=== PATIENT | female | born 1960 | race Caucasian/White ===

== ENCOUNTER 2018-06-06 00:20 | Inpatient (IN) ==
[2018-06-06] MEDS ORDERED: OXYCODONE Oral CONC 10 MG/0.5 ML ORAL.SYG SL PRN ×2 (04:34→08:44)
[2018-06-06] MEDS: D5% in 0.45% NACL w KCl 20 MEQ/1,000 ML MLS IVC SCH ×2 (05:08→15:00)
[2018-06-06] MEDS: *HR* Heparin 5,000 UNIT/ML VIAL SQ SCH ×3 (05:08→22:48)
[2018-06-06] MEDS: Nicotine 21 MG PATCH.TD24 TD SCH (05:08)
[2018-06-06] MEDS: Piperacillin/Tazobactam 3.375 GM in 0.9 % Sodium Chloride Mini Bag 100 ML IVPB SCH ×2 (07:53→16:48)
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
[2018-06-06] MEDS ORDERED: Ondansetron 4 MG/2 ML VIAL IVP PRN (08:33)
[2018-06-06] MEDS ORDERED: *HR* Promethazine 25 MG/ML VIAL IVP PRN (08:33)
[2018-06-06] MEDS ORDERED: 0.9 % Sodium Chloride 1,000 ML IVC SCH (08:45)
[2018-06-06] MEDS ORDERED: Acetaminophen IV 1,000 MG/100 ML INFUS..BTL IVPB ONE (08:49)
[2018-06-06] MEDS: Pantoprazole 40 MG VIAL IVP SCH (10:11)
[2018-06-06 10:30] LABS: Basophils % 0.1 %; Hemoglobin 15.2 g/dL (11.5-15.4); Immature Granulocytes % 0.3 % (0-4); Lymphocytes # 0.7 K/mcL (0.6-4.6); Lymphocytes % 5.6 %; Mean Corpuscular HGB Conc 36.2 g/dL (31.6-35.5); Mean Corpuscular Hemoglobin 33.3 pg (28.0-33.3); Mean Corpuscular Volume 91.9 fL (83.0-100.0); Mean Platelet Volume 10.1 fL (9.4-12.4); Monocytes # 0.7 K/mcL (0.0-1.3); Platelet Count 216 K/mcL (140-400); Red Blood Count 4.57 M/mcL (3.82-4.97); Red Cell Distribution Width 12.6 % (11.5-14.5)
[2018-06-06 10:31] LABS: Neutrophils # 11.6 K/mcL (1.6-8.9)
[2018-06-06 10:59] LABS: Platelet Estimate Normal (Normal)
[2018-06-06] MEDS: Ketorolac 15 MG/ML VIAL IVP SCH ×2 (11:09→18:05)
[2018-06-06] MEDS: Ipratropium/Albuterol Neb 3 ML IH SCH ×2 (11:14→11:17)
[2018-06-06 11:37] LABS: BUN/Creatinine Ratio 20 (6-26); Blood Urea Nitrogen 12 mg/dL (6-20); Carbon Dioxide 25 mEq/L (23-29); Chloride 98 mEq/L (98-107); Glucose 114 mg/dL (70-105); Osmolality,Calculated 269 (280-300); Potassium 4.1 mEq/L (3.5-5.1); Sodium 129 mEq/L (136-145); eGFR For Non-African Americans > 60 (> 60)
[2018-06-07] MEDS: Ketorolac 15 MG/ML VIAL IVP SCH ×4 (01:13→18:27)
[2018-06-07] MEDS: Piperacillin/Tazobactam 3.375 GM in 0.9 % Sodium Chloride Mini Bag 100 ML IVPB SCH ×3 (01:13→18:25)
[2018-06-07 04:34] LABS: Basophils % 0.3 %; Eosinophils % 0.4 %; Hematocrit 39.2 % (35.3-44.9); Hemoglobin 13.8 g/dL (11.5-15.4); Immature Granulocytes % 0.4 % (0-4); Lymphocytes # 0.9 K/mcL (0.6-4.6); Lymphocytes % 9.5 %; Mean Corpuscular HGB Conc 35.2 g/dL (31.6-35.5); Mean Corpuscular Hemoglobin 33.1 pg (28.0-33.3); Mean Platelet Volume 10.2 fL (9.4-12.4); Monocytes # 0.5 K/mcL (0.0-1.3); Neutrophils # 7.9 K/mcL (1.6-8.9); Platelet Count 164 K/mcL (140-400); Red Blood Count 4.17 M/mcL (3.82-4.97); Red Cell Distribution Width 12.8 % (11.5-14.5); Segmented Neutrophils % 84.4 %
[2018-06-07 04:56] LABS: BUN/Creatinine Ratio 23 (6-26); Blood Urea Nitrogen 14 mg/dL (6-20); Calcium 8.8 mg/dL (8.6-10.3); Carbon Dioxide 27 mEq/L (23-29); Chloride 99 mEq/L (98-107); Glucose 101 mg/dL (70-105); Magnesium 1.6 mg/dL (1.6-2.6); Osmolality,Calculated 271 (280-300); Phosphorous 2.2 mg/dL (2.7-4.5); Potassium 3.7 mEq/L (3.5-5.1); Sodium 130 mEq/L (136-145); eGFR For Non-African Americans > 60 (> 60)
[2018-06-07] MEDS: *HR* Heparin 5,000 UNIT/ML VIAL SQ SCH ×3 (05:14→21:01)
[2018-06-07 05:34] LABS: Platelet Estimate Normal (Normal)
--- NOTE | 2018-06-07 07:58 | General Surgery Progress Note ---
Date of Encounter: 06/07/18 Time of Encounter: 07:55 - Assessment and Plan (1) Acute perforated appendicitis Current Visit: Yes Status: Inactive 58F with perforated appendicitis; normal WBC; having flatus; sips of clears, will likely advance for dinner to full tray of clears replete lytes (hyponatremia, hypokalemia, hypophosphatemia, hypomagnesemia) activity as tolerated cont IV antibiotics; plan for interval appendectomy (2) Smoking history Current Visit: Yes Status: Chronic no smoking; can give nicotine patch if needed (3) Electrolyte imbalance Current Visit: Yes Status: Acute hyponatremia: sodium phosph hypophosphatemia: sodium phosph hypomagnesemia: mag sulfate hypokalemia: potassium chloride repeat labs in AM (4) Tachycardia Current Visit: Yes Status: Acute reactive to perforated appendix as a response to sepsis; expect it to continue to improve Subjective Patient reports: no new complaints, feels better, still having pain, flatus, afebrile Objective Vital Signs - Last 8 Hours Temp Pulse Resp BP Pulse Ox 06/07/18 07:41 99.1 F 110 17 107/73 92 06/07/18 04:16 99.3 F 108 14 98/68 93 Intake and Output 06/06/18 06/06/18 06/07/18 15:59 23:59 07:59 Intake Total 1200 / 1200 100 / 100 0 / 0 Output Total 1000 / 1000 300 / 300 0 / 0 Balance 200 / 200 -200 / -200 0 / 0 Intake: IV Fluids 1200 / 1200 100 / 100 KCl 20mEq IN D5%-0.45 NACL 20 1000 / 1000 meq In 1,000 ml @ 100 mls/hr IVC .Q10H [facility] Rx#:[id number] Ofirmev 1,000 mg/100 ml 1,000 100 / 100 mg In 100 ml @ 400 mls/hr IVPB ONCE ONE Rx#:[id number] Zosyn 3.375 GM In 0.9 % Sodium 100 / 100 100 / 100 Chloride (Mini-Bag +) 100 ML @ 25 mls/hr IVPB Q8HR [facility]MEN Rx#: [id number] Oral 0 / 0 0 / 0 Output: Urine 1000 / 1000 300 / 300 0 / 0 Other: Meal NPO LUNCH NPO DINNER # Voids 1 1 # Bowel Movements 0 Blood Glucose* 137 140 100 - General physical appearance no distress - Respiratory normal expansion, normal respiratory effort - Cardiovascular Cardiovascular exam: Present: RRR - Abdomen Abdomen: Present: soft, tender Abdominal Tenderness: RLQ - Integumentary no rash - Neurologic CN 2-12 grossly intact - Labs 06/07/18 04:14 06/07/18 04:14 Diabetes panel 06/06/18 06/07/18 Range/Units 11:09 04:14 Sodium 129 L 130 L (136-145) mEq/L Potassium 4.1 3.7 (3.5-5.1) mEq/L Chloride 98 99 (98-107) mEq/L Carbon Dioxide 25 27 (23-29) mEq/L BUN 12 14 (6-20) mg/dL Creatinine 0.61 0.61 (0.60-1.20) mg/dL Glucose 114 H 101 (70-105) mg/dL Calcium 9.0 8.8 (8.6-10.3) mg/dL Calcium panel 06/06/18 06/07/18 Range/Units 11:09 04:14 Calcium 9.0 8.8 (8.6-10.3) mg/dL Phosphorus 2.2 L (2.7-4.5) mg/dL Pituitary panel 06/06/18 06/07/18 Range/Units 11:09 04:14 Sodium 129 L 130 L (136-145) mEq/L Potassium 4.1 3.7 (3.5-5.1) mEq/L Chloride 98 99 (98-107) mEq/L Carbon Dioxide 25 27 (23-29) mEq/L BUN 12 14 (6-20) mg/dL Creatinine 0.61 0.61 (0.60-1.20) mg/dL Glucose 114 H 101 (70-105) mg/dL Calcium 9.0 8.8 (8.6-10.3) mg/dL Adrenal panel 06/06/18 06/07/18 Range/Units 11:09 04:14 Sodium 129 L 130 L (136-145) mEq/L Potassium 4.1 3.7 (3.5-5.1) mEq/L Chloride 98 99 (98-107) mEq/L Carbon Dioxide 25 27 (23-29) mEq/L BUN 12 14 (6-20) mg/dL Creatinine 0.61 0.61 (0.60-1.20) mg/dL Glucose 114 H 101 (70-105) mg/dL Calcium 9.0 8.8 (8.6-10.3) mg/dL Consult Discharge Plan - Plan Referrals: Stella Heaton MD [Primary Care Provider] -
[2018-06-07] MEDS: Nicotine 21 MG PATCH.TD24 TD SCH (09:10)
[2018-06-07] MEDS: Pantoprazole 40 MG VIAL IVP SCH (09:11)
[2018-06-07] MEDS: D5% in 0.9% NACL w KCl 20 MEQ/1,000 ML MLS IVC SCH (09:16)
[2018-06-07] MEDS: Ipratropium/Albuterol Neb 3 ML IH PRN ×2 (09:55→19:54)
[2018-06-07] MEDS: OXYCODONE Oral CONC 10 MG/0.5 ML ORAL.SYG SL PRN ×2 (10:19→19:02)
--- NOTE | 2018-06-07 20:21 | Event Note ---
Date of Encounter: 06/07/18 Time of Encounter: 20:19 Was called regarding the patient's elevated heart rate and low blood pressure and increasing pain. She just received Toradol but had not received her when necessary narcotic pain medication. 45 minutes 1 hour after receiving the second medication her pain did improve. Heart rate has been in the 120s and is now 114. Overall today her heart rate has been in the low [address] scan without contrast shows evolving phlegmon the right lower quadrant/ appendicitis with some fluid and third spacing. There is some pelvic fluid but no free air and also bilateral pleural effusions are noted. Continue with IV antibiotics at this time.
[2018-06-07] MEDS: D5% in 0.45% NACL w KCl 20 MEQ/1,000 ML MLS IVC SCH (20:28)
[2018-06-08] MEDS: Piperacillin/Tazobactam 3.375 GM in 0.9 % Sodium Chloride Mini Bag 100 ML IVPB SCH ×4 (00:49→20:07)
[2018-06-08] MEDS: Ketorolac 15 MG/ML VIAL IVP SCH ×3 (00:50→11:46)
[2018-06-08] MEDS: D5% in 0.9% NACL w KCl 20 MEQ/1,000 ML MLS IVC SCH ×4 (01:14→14:00)
[2018-06-08 02:16] LABS: BUN/Creatinine Ratio 29 (6-26); Blood Urea Nitrogen 14 mg/dL (6-20); Calcium 8.3 mg/dL (8.6-10.3); Carbon Dioxide 23 mEq/L (23-29); Chloride 101 mEq/L (98-107); Glucose 111 mg/dL (70-105); Magnesium 1.7 mg/dL (1.6-2.6); Osmolality,Calculated 269 (280-300); Phosphorous 2.7 mg/dL (2.7-4.5); Potassium 3.9 mEq/L (3.5-5.1); Sodium 129 mEq/L (136-145); eGFR For Non-African Americans > 60 (> 60)
[2018-06-08] MEDS: *HR* Heparin 5,000 UNIT/ML VIAL SQ SCH ×3 (06:24→21:21)
[2018-06-08] MEDS: Ipratropium/Albuterol Neb 3 ML IH PRN (06:42)
[2018-06-08 08:00] LABS: Basophils % 0.2 %; Eosinophils # 0.1 K/mcL (0.0-0.6); Eosinophils % 1.3 %; Hematocrit 34.4 % (35.3-44.9); Immature Granulocytes % 0.3 % (0-4); Lymphocytes # 0.8 K/mcL (0.6-4.6); Lymphocytes % 9.3 %; Mean Corpuscular HGB Conc 33.7 g/dL (31.6-35.5); Mean Platelet Volume 10.1 fL (9.4-12.4); Monocytes # 0.5 K/mcL (0.0-1.3); Monocytes % 5.8 %; Neutrophils # 7.5 K/mcL (1.6-8.9); Platelet Count 200 K/mcL (140-400); Red Blood Count 3.62 M/mcL (3.82-4.97); Segmented Neutrophils % 83.1 %
[2018-06-08 08:11] LABS: Hemoglobin 11.6 g/dL (11.5-15.4)
[2018-06-08] MEDS: OXYCODONE Oral CONC 10 MG/0.5 ML ORAL.SYG SL PRN (09:31)
[2018-06-08] MEDS: Pantoprazole 40 MG VIAL IVP SCH (10:03)
[2018-06-08] MEDS: Nicotine 21 MG PATCH.TD24 TD SCH (10:03)
--- NOTE | 2018-06-08 11:28 | Event Note ---
Date of Encounter: 06/08/18 Time of Encounter: 11:26 CXR with opacities concerning for PNA in the mid lobe. Zosyn coverage already on board. Will add scheduled dueb, mucomyst (given smoking history), and accu- pap. NAD. No contraindications to proceed with surgical intervention today.
[2018-06-08] MEDS: Ipratropium/Albuterol Neb 3 ML IH SCH ×4 (11:35→23:28)
[2018-06-08] MEDS: Acetylcysteine 10% 2 ML INHSOL IH SCH ×4 (11:35→23:28)
--- NOTE | 2018-06-08 13:39 | General Surgery Progress Note ---
Date of Encounter: 06/08/18 Time of Encounter: 13:37 - Assessment and Plan (1) Acute perforated appendicitis Current Visit: Yes Status: Inactive 58F with perforated appendicitis; normal WBC; febrile; continued pain; npo IVF abx plan for OR today (2) Smoking history Current Visit: Yes Status: Chronic no smoking; can give nicotine patch if needed (3) Electrolyte imbalance Current Visit: Yes Status: Acute hyponatremia: sodium phosph hypophosphatemia: sodium phosph hypomagnesemia: mag sulfate hypokalemia: potassium chloride repeat labs in AM (4) Tachycardia Current Visit: Yes Status: Acute reactive to perforated appendix as a response to sepsis; expect it to continue to improve after srugery Subjective Patient reports: no new complaints, other (febrile; continued pain, tachycardic) Objective Vital Signs - Last 8 Hours Temp Pulse Resp BP Pulse Ox 06/08/18 12:00 99.6 F 108 20 102/69 93 06/08/18 11:35 20 89 06/08/18 10:00 99.5 F 116 21 131/82 95 06/08/18 07:47 98.7 F 103 18 101/68 92 06/08/18 06:42 16 92 Intake and Output 06/07/18 06/08/18 06/08/18 23:59 07:59 15:59 Intake Total 1300 / 1300 834 / 834 357 / 357 Output Total 200 / 200 Balance 1300 / 1300 634 / 634 357 / 357 Intake: IV Fluids 1200 / 1200 734 / 734 357 / 357 KCl 20mEq in D5-0.9 NaCl 20 meq 1000 / 1000 634 / 634 357 / 357 In 1,000 ml @ 100 mls/hr IVC . Q10H [facility] Rx#:[id number] Zosyn 3.375 GM In 0.9 % Sodium 100 / 100 100 / 100 Chloride (Mini-Bag +) 100 ML @ 25 mls/hr IVPB Q8HR [facility] Rx#: [id number] Oral 100 / 100 100 / 100 Output: Urine 200 / 200 Other: Meal npo Percent of Meal Consumed 0% # Voids 1 1 Weight 73.1 kg Patient Weight 06/08/18 23:59 Weight 73.1 kg - General physical appearance no distress - Respiratory normal expansion, normal respiratory effort - Cardiovascular Cardiovascular exam: Present: RRR, tachycardia - Abdomen Abdomen: Present: soft, tender Abdominal Tenderness: RLQ - Neurologic CN 2-12 grossly intact - Musculoskeletal normal posture - Psychiatric oriented to time, oriented to person, oriented to place - Labs 06/08/18 07:34 06/08/18 01:28 Diabetes panel 06/08/18 Range/Units 01:28 Sodium 129 L (136-145) mEq/L Potassium 3.9 (3.5-5.1) mEq/L Chloride 101 (98-107) mEq/L Carbon Dioxide 23 (23-29) mEq/L BUN 14 (6-20) mg/dL Creatinine 0.48 L (0.60-1.20) mg/dL Glucose 111 H (70-105) mg/dL Calcium 8.3 L (8.6-10.3) mg/dL Calcium panel 06/08/18 Range/Units 01:28 Calcium 8.3 L (8.6-10.3) mg/dL Phosphorus 2.7 (2.7-4.5) mg/dL Pituitary panel 06/08/18 Range/Units 01:28 Sodium 129 L (136-145) mEq/L Potassium 3.9 (3.5-5.1) mEq/L Chloride 101 (98-107) mEq/L Carbon Dioxide 23 (23-29) mEq/L BUN 14 (6-20) mg/dL Creatinine 0.48 L (0.60-1.20) mg/dL Glucose 111 H (70-105) mg/dL Calcium 8.3 L (8.6-10.3) mg/dL Adrenal panel 06/08/18 Range/Units 01:28 Sodium 129 L (136-145) mEq/L Potassium 3.9 (3.5-5.1) mEq/L Chloride 101 (98-107) mEq/L Carbon Dioxide 23 (23-29) mEq/L BUN 14 (6-20) mg/dL Creatinine 0.48 L (0.60-1.20) mg/dL Glucose 111 H (70-105) mg/dL Calcium 8.3 L (8.6-10.3) mg/dL Consult Discharge Plan - Plan Referrals: Stella Heaton MD [Primary Care Provider] -
[2018-06-08] MEDS ORDERED: Albuterol 2.5 MG/3 ML NEBULIZER IH ONE ×2 (13:55→17:48)
--- NOTE | 2018-06-08 13:59 | Anesthesia Evaluation PreOp ---
Date of Encounter: 06/08/18 Time of Encounter: 14:00 - Past History Planned Operation: Lap Appendectomy Cardiac History: HTN Pulmonary History: Smoker (40 pack year), COPD [employer] History: Denies Any Significant HX Other Medical History: Hepatic (Hep C) Anesthesia History: No Prior Anesthetic Complications Alcohol Use: occasionally Drug use: none Medications and Allergies Cholecalciferol (D-3) [Vitamin D] 1,000 unit PO DAILY 01/30/18 [History] Citalopram Hydrobromide [Celexa] 40 mg PO DAILY 01/30/18 [History] Multivitamin [One Daily Multivitamin] 1 tab PO DAILY 01/30/18 [History] Cyclobenzaprine [Flexeril] 10 mg PO TID 7 Days #21 tablet 01/31/18 [Rx] Tramadol HCl [Ultram] 50 mg PO QID PRN 06/06/18 [History] 3 Allergy/AdvReac Type Severity Reaction Status Date / Time No Known Allergies Allergy Verified 01/30/18 07:10 - Meds/Allergy Pre-op Review Medications Reviewed: Yes Allergies Reviewed: Yes Beta Blockers on Current Med List: No Anesthesia Results - Labs 06/08/18 07:34 06/08/18 01:28 - Imaging EKG: report reviewed (SR) Anesthesia Exam O2 Sat Weight 73.1 kg O2 Sat by Pulse Oximetry 93 O2 Sat by Pulse Oximetry 89 O2 Sat by Pulse Oximetry 95 O2 Sat by Pulse Oximetry 92 O2 Sat by Pulse Oximetry 92 O2 Sat by Pulse Oximetry 92 O2 Sat by Pulse Oximetry 91 O2 Sat by Pulse Oximetry 92 O2 Sat by Pulse Oximetry 93 O2 Sat by Pulse Oximetry 92 O2 Sat by Pulse Oximetry 92 O2 Sat by Pulse Oximetry 92 O2 Sat by Pulse Oximetry 90 Vital Signs Temp Pulse Resp BP Pulse Ox 98.6 F 119 14 119/84 95 06/06/18 04:23 06/06/18 04:23 06/06/18 04:23 06/06/18 04:23 06/06/18 04:23 Height: 5'6 Weight: 161 lbs NPO (# of Hours): MN Pain Scale: 0 - HEENT Pupil (Motor): Pupils equal, EOMI Mallampati: II Oral Opening: Greater than 3 - [employer] LOC: Oriented [employer] Motor: Normal RUE, Normal LUE, Normal RLE, Normal LLE, Normal Face [employer] Sensory: Normal: RUE, LUE, RLE, LLE, Face - Cardiac Rhythm: Regular Murmur: None JVD: No Carotid Bruit: No - Pulmonary Breath Sounds: bilateral Clear Respiratory Effort: Symmetrical Anesthesia Assess/Plan ASA Score: 3 (HTN COPD Tobacco HepC) Modified Dipak Scale for Level of Consciousness: Cooperative, oriented, and tranquil Anesthetic Plan: General Monitoring Plan: Standard Monitors Recovery Plan: PACU (Discussed GA, agrees to proceed)
[2018-06-08] MEDS ORDERED: *HR* FentaNYL (PF) 100 MCG/2 ML VIAL ONE (14:51)
[2018-06-08] MEDS ORDERED: *HR* Propofol 200 MG/20 ML VIAL IVP ONE (14:51)
[2018-06-08] MEDS ORDERED: Lidocaine -MPF 2% 2 ML VIAL ONE (14:51)
[2018-06-08] MEDS ORDERED: Ondansetron 4 MG/2 ML VIAL ONE (14:51)
[2018-06-08] MEDS ORDERED: Dexamethasone 4 MG/ML VIAL ONE (14:51)
[2018-06-08] MEDS ORDERED: *HR* Rocuronium Bromide 50 MG/5 ML VIAL ONE (14:51)
[2018-06-08] MEDS ORDERED: Lidocaine -MPF 4% 5 ML AMPUL ONE (14:51)
[2018-06-08] MEDS ORDERED: *HR* Succinylcholine 200 MG/10 ML VIAL IVP ONE (14:57)
[2018-06-08] MEDS ORDERED: *HR* HYDROmorphone (PF) 1 MG/ML SYRINGE IVP PRN (15:11)
[2018-06-08] MEDS ORDERED: Dexamethasone 4 MG/ML VIAL IVP ONE (15:11)
[2018-06-08] MEDS ORDERED: Ondansetron 4 MG/2 ML VIAL IVP ONE (15:11)
[2018-06-08] MEDS ORDERED: *HR* Promethazine 25 MG/ML VIAL IVP PRN ×2 (15:11→18:25)
[2018-06-08] MEDS ORDERED: *HR* Labetalol 20 MG/4 ML SYRINGE IVP PRN (15:11)
[2018-06-08] MEDS ORDERED: CefOXitin 1,000 MG VIAL ONE ×2 (15:31→16:36)
[2018-06-08] MEDS ORDERED: *HR* PHENYLEPHRINE 1,000 MCG/10 ML SYRINGE IVP ONE (15:31)
[2018-06-08] MEDS ORDERED: *HR* Morphine 10 MG/ML VIAL ONE (16:06)
[2018-06-08] MEDS ORDERED: Neostigmine Methylsulfate 3 MG/3 ML SYRINGE ONE (16:55)
[2018-06-08] MEDS ORDERED: Micafungin 100 MG in 0.9 % Sodium Chloride Mini Bag 100 ML IVPB SCH (17:30)
[2018-06-08] MEDS ORDERED: Albuterol 2.5 MG/3 ML NEBULIZER ONE (17:49)
[2018-06-08] MEDS ORDERED: Ringers Solution, Lactated 1,000 ML ONE (18:13)
[2018-06-08] MEDS ORDERED: Ondansetron 4 MG/2 ML VIAL IVP PRN (18:25)
--- NOTE | 2018-06-08 18:40 | Anesthesia Evaluation Post Op ---
Date of Encounter: 06/08/18 Time of Encounter: 18:39 - Vital Signs Vital Signs: Vital Signs/O2 Sat, Most Current Temp Pulse Resp BP Pulse Ox 98.1 F 108 21 108/80 89 06/08/18 18:18 06/08/18 18:18 06/08/18 18:18 06/08/18 18:18 06/08/18 18:18 - Lungs Lungs: Wheezes, Treatment Ordered - Airway Airway: Non-obstructed - Cardiovascular Regular Rate - Mental Status Mental Status: Asleep with brisk response to light stimulation, Baseline Status - Pain Pain Scale: 0 Pain Scale used: Numeric (1 - 10) - Nausea Vomiting Nausea Vomiting: Not Present - Hydration Hydration: Ice chips - Discharge PostOp Status: Transfer Patient to floor
[2018-06-09] MEDS: Ipratropium/Albuterol Neb 3 ML IH SCH ×5 (03:29→19:35)
[2018-06-09] MEDS: Acetylcysteine 10% 2 ML INHSOL IH SCH ×5 (03:29→19:35)
[2018-06-09] MEDS: OXYCODONE Oral CONC 10 MG/0.5 ML ORAL.SYG SL PRN ×2 (03:30→12:40)
[2018-06-09] MEDS: D5% in 0.9% NACL w KCl 20 MEQ/1,000 ML MLS IVC SCH (03:31)
[2018-06-09] MEDS: Piperacillin/Tazobactam 3.375 GM in 0.9 % Sodium Chloride Mini Bag 100 ML IVPB SCH ×3 (03:32→17:45)
[2018-06-09] MEDS: *HR* Heparin 5,000 UNIT/ML VIAL SQ SCH ×3 (04:56→20:43)
[2018-06-09] MEDS: Ketorolac 15 MG/ML VIAL IVP PRN ×2 (04:57→17:49)
[2018-06-09] MEDS ORDERED: Benzonatate 100 MG CAPSULE PO PRN ×2 (07:35→18:36)
--- NOTE | 2018-06-09 07:40 | General Surgery Progress Note ---
Addendum entered and electronically signed by Evie Pruitt 06/09/18 10:16: After consulting Nutritions we will follow recommendation to start TPN as patient will likely remain NPO into the weekend Original Note: <Evie Pruitt - Last Filed: 06/09/18 07:38> Date of Encounter: 06/09/18 Time of Encounter: 07:38 - Assessment and Plan (1) Perforated appendicitis Current Visit: Yes Status: Acute POD 1 of laproscopic appendectomy with partial removal due to rupture and abscess formation may lead to longer length of stay. WBC 11.6 - continue zosyn - NPO - continue protonix - pain and nausea medications continued prn - PT consult (2) COPD (chronic obstructive pulmonary disease) Current Visit: Yes Status: Suspected Distant diagnosis of COPD with smoking history but not no out patient treatment - duonebs and acetylcysteine q4hr - tessalon prn on cough - continues pulse ox - continue oxygen supplementation May need PFTs as out patient Qualifiers: COPD type: unspecified COPD Qualified Code(s): J44.9 - Chronic obstructive pulmonary disease, unspecified (3) DVT prophylaxis Current Visit: Yes Status: Acute heparin SQ Subjective Patient reports: still having pain, flatus, shortness of breath, afebrile Narrative: RLQ pain is improving but worse with cough. Still short of breath and requiring oxygen with history of COPD diagnosed 10 years ago and noncompliant with inhalers Objective Vital Signs - Last 8 Hours Temp Pulse Resp BP Pulse Ox 06/09/18 05:45 98.3 F 96 16 115/78 89 06/09/18 04:15 98.6 F 104 15 100/67 92 06/09/18 03:32 16 93 06/09/18 00:23 98 F 103 14 103/74 92 Intake and Output 06/08/18 06/08/18 06/09/18 15:59 23:59 07:59 Intake Total 657 / 657 300 / 300 800 / 800 Output Total 560 / 560 710 / 710 Balance 657 / 657 -260 / -260 90 / 90 Intake: IV Fluids 657 / 657 300 / 300 800 / 800 KCl 20mEq in D5-0.9 NaCl 20 meq 557 / 557 200 / 200 800 / 800 In 1,000 ml @ 100 mls/hr IVC . Q10H [facility] Rx#:[id number] Zosyn 3.375 GM In 0.9 % Sodium 100 / 100 100 / 100 Chloride (Mini-Bag +) 100 ML @ 25 mls/hr IVPB Q8H [facility] Rx#: [id number] Oral 0 / 0 Output: Urine 650 / 650 Estimated Blood Loss Wound Drainage 540 / 540 60 / 60 Left Abdomen 10 40 / 40 Right Abdomen Other: Meal npo Percent of Meal Consumed 0% # Voids 1 # Bowel Movements 0 Weight 98.3 kg Patient Weight 06/09/18 23:59 Weight 98.3 kg - General physical appearance well developed, moderate pain, obese - Eyes normal ocular movement - ENT normal pinna, normal nares, normal mucosa, no hearing loss - Respiratory normal expansion, normal respiratory effort, other wheezing: bilateral - Cardiovascular Cardiovascular exam: Present: RRR. Absent: murmurs, rubs - Abdomen Abdomen: Present: bowel sounds present, soft, distended, tender, wound. Absent : guarding, rebound Abdominal Tenderness: RLQ, diffusely Hernia: none - Incision Incision: Present: draining, serosanguinous, approximated. Absent: swollen, inflamed - Neurologic normal coordination, normal sensation - Musculoskeletal normal posture - Psychiatric oriented to time, oriented to person, oriented to place, speech is normal - Labs 06/08/18 07:34 06/08/18 01:28 Consult Discharge Plan - Plan Referrals: Stella Heaton MD [Primary Care Provider] - <Dale Small - Last Filed: 06/09/18 15:55> Date of Encounter: 06/09/18 - Assessment and Plan (1) Acute perforated appendicitis Current Visit: Yes Status: Inactive (2) Smoking history Current Visit: Yes Status: Chronic (3) Electrolyte imbalance Current Visit: Yes Status: Acute (4) Tachycardia Current Visit: Yes Status: Acute Objective Vital Signs - Last 8 Hours Temp Pulse Resp BP Pulse Ox 06/09/18 14:00 98.2 F 107 25 110/72 94 06/09/18 12:00 98.1 F 114 23 118/77 90 06/09/18 11:10 18 91 06/09/18 10:23 97.5 F L 98 22 109/79 91 06/09/18 10:14 98.0 F 97 24 101/64 88 06/09/18 08:30 92 06/09/18 07:50 18 90 Intake and Output 06/08/18 06/09/18 06/09/18 23:59 07:59 15:59 Intake Total 300 / 300 900 / 900 920 / 920 Output Total 560 / 560 710 / 710 300 / 300 Balance -260 / -260 190 / 190 620 / 620 Intake: IV Fluids 300 / 300 900 / 900 920 / 920 KCl 20mEq in D5-0.9 NaCl 20 meq 200 / 200 800 / 800 820 / 820 In 1,000 ml @ 100 mls/hr IVC . Q10H [facility] Rx#:[id number] Zosyn 3.375 GM In 0.9 % Sodium 100 / 100 100 / 100 100 / 100 Chloride (Mini-Bag +) 100 ML @ 25 mls/hr IVPB Q8H [facility] Rx#: [id number] Oral 0 / 0 Output: Urine 650 / 650 250 / 250 Estimated Blood Loss 20 / 20 Wound Drainage 540 / 540 60 / 60 50 / 50 Left Abdomen 40 / 40 10 10 Right Abdomen 20 20 40 / 40 Other: Meal npo Percent of Meal Consumed 0% # Bowel Movements 0 Weight 98.3 kg Patient Weight 06/09/18 23:59 Weight 98.3 kg - Labs 06/09/18 07:38 06/09/18 07:38 Diabetes panel 06/09/18 Range/Units 07:38 Sodium 135 L (136-145) mEq/L Potassium 4.7 (3.5-5.1) mEq/L Chloride 107 (98-107) mEq/L Carbon Dioxide 24 (23-29) mEq/L BUN 13 (6-20) mg/dL Creatinine 0.49 L (0.60-1.20) mg/dL Glucose 149 H (70-105) mg/dL Calcium 8.6 (8.6-10.3) mg/dL Calcium panel 06/09/18 Range/Units 07:38 Calcium 8.6 (8.6-10.3) mg/dL Phosphorus 3.4 (2.7-4.5) mg/dL Pituitary panel 06/09/18 Range/Units 07:38 Sodium 135 L (136-145) mEq/L Potassium 4.7 (3.5-5.1) mEq/L Chloride 107 (98-107) mEq/L Carbon Dioxide 24 (23-29) mEq/L BUN 13 (6-20) mg/dL Creatinine 0.49 L (0.60-1.20) mg/dL Glucose 149 H (70-105) mg/dL Calcium 8.6 (8.6-10.3) mg/dL Adrenal panel 06/09/18 Range/Units 07:38 Sodium 135 L (136-145) mEq/L Potassium 4.7 (3.5-5.1) mEq/L Chloride 107 (98-107) mEq/L Carbon Dioxide 24 (23-29) mEq/L BUN 13 (6-20) mg/dL Creatinine 0.49 L (0.60-1.20) mg/dL Glucose 149 H (70-105) mg/dL Calcium 8.6 (8.6-10.3) mg/dL - Attending Attestation I have personally seen and examined the patient. I have reviewed pertinent labs , imaging, progress notes, including this one. I agree with the above assessment and plan and wish to include the following... POD #1 s/p laparoscopic debridement of periappendiceal abscess 2/2 perforated appendicitis; also with GNR bactermia; improved pain, but still present; slight elevation in WBC; good UOP start TPN (will need pICC line) antimicrobial per ID recs anticipating ileus; NG tube vs diet when clinically indicated activity as tolerated cont IVF albuterol neb while awake
[2018-06-09 07:57] LABS: Basophils % 0.1 %; Hematocrit 34.5 % (35.3-44.9); Hemoglobin 11.6 g/dL (11.5-15.4); Immature Granulocytes % 0.8 % (0-4); Lymphocytes # 0.6 K/mcL (0.6-4.6); Lymphocytes % 4.9 %; Mean Corpuscular HGB Conc 33.6 g/dL (31.6-35.5); Mean Corpuscular Hemoglobin 32.4 pg (28.0-33.3); Mean Corpuscular Volume 96.4 fL (83.0-100.0); Mean Platelet Volume 9.8 fL (9.4-12.4); Monocytes # 0.6 K/mcL (0.0-1.3); Monocytes % 5.1 %; Neutrophils # 10.6 K/mcL (1.6-8.9); Platelet Count 230 K/mcL (140-400); Red Blood Count 3.58 M/mcL (3.82-4.97); Red Cell Distribution Width 13.1 % (11.5-14.5); Segmented Neutrophils % 89.1 %
[2018-06-09 08:16] LABS: BUN/Creatinine Ratio 27 (6-26); Blood Urea Nitrogen 13 mg/dL (6-20); Calcium 8.6 mg/dL (8.6-10.3); Carbon Dioxide 24 mEq/L (23-29); Chloride 107 mEq/L (98-107); Glucose 149 mg/dL (70-105); Magnesium 1.8 mg/dL (1.6-2.6); Osmolality,Calculated 283 (280-300); Phosphorous 3.4 mg/dL (2.7-4.5); Potassium 4.7 mEq/L (3.5-5.1); Sodium 135 mEq/L (136-145); eGFR For Non-African Americans > 60 (> 60)
[2018-06-09] MEDS ORDERED: Nicotine 21 MG PATCH.TD24 TD SCH (09:00)
[2018-06-09] MEDS ORDERED: Pantoprazole 40 MG VIAL IVP SCH (09:00)
[2018-06-09] MEDS ORDERED: Lidocaine -MPF 1% 5 ML AMPUL INFILT ONE (10:14)
[2018-06-09] MEDS ORDERED: 0.9 % Sodium Chloride 1,000 ML IVC SCH (11:15)
[2018-06-09] MEDS ORDERED: D10% in Water 500 ML IVC PRN ×5 (11:33→18:36)
[2018-06-09] MEDS ORDERED: D5% in Water 1,000 ML IVC PRN ×2 (12:08→18:36)
[2018-06-09] MEDS ORDERED: Dextrose Gel 15 GM/37.5 ML TUBE PO PRN ×4 (12:08→18:36)
[2018-06-09] MEDS ORDERED: *HR* Dextrose 50 % in Water (Syg) 50 ML SYRINGE IVP PRN ×2 (12:08→18:36)
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
[2018-06-09] MEDS ORDERED: Insulin LISPRO 300 UNITS/3 ML VIAL SQ SCH (16:00)
--- NOTE | 2018-06-09 16:11 | Operative Note ---
Date of procedure: 06/08/18 Pre-op diagnosis: perforated appendicitis Post-op diagnosis: same Procedure: laparoscopic debridement and abdominal washout Implants: 2 19fr vasyl drains Complications: none Anesthesia: GETA Local Anesthetics: 0.5% Sensorcaine HCL SubQ (cc) Surgeon: Dale Small Was there an certified ophthalmic assistant present: No Estimated blood loss (cc): 20 Specimen: appendix Condition: stable Disposition: PACU Procedure in Detail: The patient was brought into the operating room suite. The patient was placed in the supine position. Mechanical DVT prophylaxis was initiated. The patient underwent smooth induction of general endotracheal anesthesia. The patient was prepped and draped in the usual fashion. Preoperative antibiotics were given. A timeout was held identifying the correct patient, pathology, and procedure. Everyone was in agreement and we began a procedure. I started bycreating a supraumbilical incision and via open Kebede technique entered into the abdomen. I then used a Vicryl suture on a UR 6 needle in a [id number] fashion to reapproximate but not close the fascia. I then inserted the 10 trocar followed by the camera to visualize the intraabdominal cavity. I then created a 5 mm incision suprapubically and inserted the 5 mm trocar under direct visualization. Roughly 1 handbreadth lateral to the umbilical incision I created another 5 mm incision and inserted another 5 mm trocar under direct visualization. I immediately noticed a fairly dense wall of inflammation along the right side. There were adhesions that came down easily with the release of purulent drainage. This was suctioned to prevent widespread contamination as this abscess was walled off. I continued taking down the adhesions until I reached an especially dense portion on the right side which i figured corresponded to where the appendix perforated. I was able to identify the cecum and as I followed it to its base, I was able to see the base of the appendix. Following it as best as I could, i was able to see the body of the appendix. Taking down the inflammatory tissue and adhesions with blunt dissection, I was able to free the appendix. I went into the abdominal side wall to create a flap of tissue that could grasp instead of the appendix. This was helpful as I was able to dissect more of the appendix off the side wall. As I continued this maneuver, the appendix ripped in the grasp of my instrument. I removed the piece of specimen and sent it for pathology. It was at this time, I decided to conclude the procedure. There was no contamination with succus nor enteric contents I irrigated the abdomen with 2L of antibiotic impregnated saline. Left two 19fr vasyl drains in the abdomen in the area of the abscess. The suprapubic trails through the abscess and down towards the pelvis. The left lateral is near the abscess and across the mid abdomen. I then concluded the procedure, turned off the insufflation, removed the trochars under direct visualization, and then closed the umbilical fascia using the Vicryl suture that was placed at the beginning. I used silk suture to secure the drains. I then closed the umbilical incision with stapler. It should be stated that I did use 0.5% Marcaine as a local anesthetic. The patient tolerated the procedure well and did go back to PACU in stable condition.
[2018-06-09] MEDS ORDERED: Clinimix E 5%-15% SOLUTION 2,000 ML with MVI, adult with vitamin K 10 ML IVC SCH ×2 (17:00→18:36)
[2018-06-09] MEDS ORDERED: traMADol 50 MG TABLET PO PRN ×2 (17:51→18:36)
[2018-06-09] MEDS ORDERED: *HR* Promethazine 25 MG/ML VIAL IVP PRN (18:36)
[2018-06-09] MEDS ORDERED: OXYCODONE Oral CONC 10 MG/0.5 ML ORAL.SYG SL PRN (18:36)
[2018-06-09] MEDS ORDERED: Ondansetron 4 MG/2 ML VIAL IVP PRN (18:36)
[2018-06-09] MEDS ORDERED: Furosemide 40 MG/4 ML VIAL IVP ONE (20:10)
[2018-06-09] MEDS: 0.9 % Sodium Chloride 1,000 ML IVC SCH (20:40)
[2018-06-09] MEDS: Insulin LISPRO 300 UNITS/3 ML VIAL SQ SCH ×2 (20:42→23:26)
[2018-06-09 22:03] LABS: ABG Base Excess 2 mEq/L (-2 to 3); ABG HCO3 27 mEq/L (21-27); ABG Oxygen Saturation 91 % (95-98); ABG PCO2 45 mmHg (35-45); ABG PH 7.39 pH Units (7.32-7.45); ABG PO2 62 mmHg (85-104); ABG TCO2 29 mEq/L (20-26); Blood Gas PEEP 6 cm H2O
[2018-06-09] MEDS: Clinimix E 5%-15% SOLUTION 2,000 ML with MVI, adult with vitamin K 10 ML IVC SCH (23:30)
[2018-06-10] MEDS: Acetylcysteine 10% 2 ML INHSOL IH SCH ×6 (00:10→19:47)
[2018-06-10] MEDS: Ipratropium/Albuterol Neb 3 ML IH SCH ×6 (00:10→19:47)
[2018-06-10] MEDS: Piperacillin/Tazobactam 3.375 GM in 0.9 % Sodium Chloride Mini Bag 100 ML IVPB SCH ×3 (03:25→16:56)
[2018-06-10] MEDS: Ketorolac 15 MG/ML VIAL IVP PRN ×2 (03:48→12:11)
[2018-06-10] MEDS: Insulin LISPRO 300 UNITS/3 ML VIAL SQ SCH ×6 (03:49→23:27)
[2018-06-10 04:51] LABS: BUN/Creatinine Ratio 25 (6-26); Blood Urea Nitrogen 11 mg/dL (6-20); Calcium 8.7 mg/dL (8.6-10.3); Carbon Dioxide 28 mEq/L (23-29); Chloride 103 mEq/L (98-107); Glucose 141 mg/dL (70-105); Magnesium 1.5 mg/dL (1.6-2.6); Osmolality,Calculated 286 (280-300); Phosphorous 2.8 mg/dL (2.7-4.5); Potassium 3.5 mEq/L (3.5-5.1); Sodium 137 mEq/L (136-145); Triglycerides 151 mg/dL (< 150); eGFR For Non-African Americans > 60 (> 60)
[2018-06-10 05:11] LABS: Basophils % 0.3 %; Eosinophils % 0.3 %; Hematocrit 32.8 % (35.3-44.9); Hemoglobin 11.1 g/dL (11.5-15.4); Immature Granulocytes % 1.8 % (0-4); Lymphocytes # 1.5 K/mcL (0.6-4.6); Lymphocytes % 12.4 %; Mean Corpuscular HGB Conc 33.8 g/dL (31.6-35.5); Mean Corpuscular Hemoglobin 32.2 pg (28.0-33.3); Mean Corpuscular Volume 95.1 fL (83.0-100.0); Mean Platelet Volume 9.7 fL (9.4-12.4); Monocytes # 0.8 K/mcL (0.0-1.3); Neutrophils # 9.4 K/mcL (1.6-8.9); Platelet Count 268 K/mcL (140-400); Red Blood Count 3.45 M/mcL (3.82-4.97); Red Cell Distribution Width 13.2 % (11.5-14.5); Segmented Neutrophils % 78.2 %
[2018-06-10 05:13] LABS: Platelet Estimate Normal (Normal); Reactive Lymphocytes Present (Not Present)
[2018-06-10] MEDS: 0.9 % Sodium Chloride 1,000 ML IVC SCH ×3 (05:42→21:09)
[2018-06-10] MEDS ORDERED: Furosemide 40 MG/4 ML VIAL IVP ONE ×3 (06:00→13:35)
[2018-06-10] MEDS: *HR* Heparin 5,000 UNIT/ML VIAL SQ SCH ×3 (06:03→21:03)
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
[2018-06-10] MEDS: Nicotine 21 MG PATCH.TD24 TD SCH (07:55)
[2018-06-10] MEDS: Pantoprazole 40 MG VIAL IVP SCH (07:55)
[2018-06-10] MEDS ORDERED: Azithromycin 500 MG in D5% in Water 250 ML IVPB SCH (09:00)
[2018-06-10] MEDS: Micafungin 100 MG in 0.9 % Sodium Chloride Mini Bag 100 ML IVPB SCH (11:57)
--- NOTE | 2018-06-10 14:45 | General Surgery Progress Note ---
<Evie Pruitt Hannah - Last Filed: 06/10/18 14:43> Date of Encounter: 06/10/18 Time of Encounter: 09:43 - Assessment and Plan (1) Acute respiratory failure with hypoxia Current Visit: Yes Status: Acute Critical care consulted (2) Perforated appendicitis Current Visit: Yes Status: Acute POD 2 of laproscopic appendectomy with partial removal due to rupture and abscess formation may lead to longer length of stay. - continue zosyn and micufungin per ID recommendation - NPO - continue protonix - pain and nausea medications continued prn - TPN held per Critical Care team reccomendations (3) Sepsis Current Visit: Yes Status: Acute Likely due to perforated appendicitis - see above - Critical Care consulted Qualifiers: Sepsis type: sepsis due to unspecified organism Qualified Code(s): A41.9 - Sepsis, unspecified organism (4) DVT prophylaxis Current Visit: Yes Status: Acute heparin SQ Subjective Patient reports: pain is less, shortness of breath, afebrile Narrative: 58 y/o female with untreated COPD admitted for perforated appendicitis with increased shortness of breath and work of breathing transferred to ICU yesterday and started on Bipap. Objective Vital Signs - Last 8 Hours Temp Pulse Resp BP Pulse Ox 06/10/18 14:00 105 24 143/95 95 06/10/18 12:08 100.3 F H 06/10/18 12:00 112 26 147/91 94 06/10/18 11:00 111 32 145/94 94 06/10/18 10:57 25 97 06/10/18 10:00 102 25 148/96 97 06/10/18 09:00 108 18 146/89 91 06/10/18 08:44 98.2 F 06/10/18 08:00 108 21 144/104 93 06/10/18 07:47 28 130/82 93 06/10/18 07:00 99 19 133/102 95 Intake and Output 06/09/18 06/10/18 06/10/18 23:59 07:59 15:59 Intake Total 450 / 450 200 / 200 1208 / 1208 Output Total 2437 / 2437 808 / 808 2200 / 2200 Balance -1986 / -1986 -608 / -608 -992 / -992 Intake: IV Fluids 450 / 450 200 / 200 1208 / 1208 0.9 % Sodium Chloride 1,000 ML 450 / 450 @ 100 mls/hr IVC .Q10H [facility] Rx#: [id number] Clinimix E 5%-15% SOLUTION 2, 958 / 958 000 ML @ 60 mls/hr IVC .Q24H [facility] with M.v.i. Adult 10 ml Rx# :[id number] Zosyn 3.375 GM In 0.9 % Sodium 200 / 200 Chloride (Mini-Bag +) 100 ML @ 25 mls/hr IVPB Q8H [facility] Rx#: [id number] Output: Urine 2400 / 2400 800 / 800 Catheter 2200 / 2200 Wound Drainage 37 / 37 8 / 8 0 / 0 Left Abdomen 12 / 12 0 / 0 0 / 0 Right Abdomen / 8 / 8 0 / 0 Other: # Voids 1 Blood Glucose* 108 143 131 - General physical appearance well developed, well nourished, no distress - Eyes normal ocular movement - ENT normal pinna, normal nares, normal mucosa, no hearing loss, no congestion - Respiratory normal expansion, normal respiratory effort, clear to auscultation - Cardiovascular Cardiovascular exam: Present: RRR, no murmurs/rubs/gallops - Abdomen Abdomen: Present: bowel sounds present. Absent: rebound, rigid Abdominal Tenderness: diffusely Hernia: none - Incision Incision: Present: serosanguinous, approximated. Absent: red, inflamed - Integumentary no rash, no growths, no abnormal pigmentation - Neurologic normal coordination, normal sensation - Musculoskeletal normal gait, normal posture - Psychiatric oriented to time, oriented to person, oriented to place, speech is normal, memory intact - Labs 06/10/18 05:00 06/10/18 04:19 Diabetes panel 06/10/18 Range/Units 04:19 Sodium 137 (136-145) mEq/L Potassium 3.5 D (3.5-5.1) mEq/L Chloride 103 (98-107) mEq/L Carbon Dioxide 28 (23-29) mEq/L BUN 11 (6-20) mg/dL Creatinine 0.44 L (0.60-1.20) mg/dL Glucose 141 H (70-105) mg/dL Calcium 8.7 (8.6-10.3) mg/dL Triglycerides 151 H (< 150) mg/dL Calcium panel 06/10/18 Range/Units 04:19 Calcium 8.7 (8.6-10.3) mg/dL Phosphorus 2.8 (2.7-4.5) mg/dL Pituitary panel 06/10/18 Range/Units 04:19 Sodium 137 (136-145) mEq/L Potassium 3.5 D (3.5-5.1) mEq/L Chloride 103 (98-107) mEq/L Carbon Dioxide 28 (23-29) mEq/L BUN 11 (6-20) mg/dL Creatinine 0.44 L (0.60-1.20) mg/dL Glucose 141 H (70-105) mg/dL Calcium 8.7 (8.6-10.3) mg/dL Adrenal panel 06/10/18 Range/Units 04:19 Sodium 137 (136-145) mEq/L Potassium 3.5 D (3.5-5.1) mEq/L Chloride 103 (98-107) mEq/L Carbon Dioxide 28 (23-29) mEq/L BUN 11 (6-20) mg/dL Creatinine 0.44 L (0.60-1.20) mg/dL Glucose 141 H (70-105) mg/dL Calcium 8.7 (8.6-10.3) mg/dL Consult Discharge Plan - Plan Referrals: Stella Heaton MD [Primary Care Provider] - <Kishore Ricci - Last Filed: 06/11/18 17:38> Date of Encounter: 06/10/18 - Assessment and Plan (1) Acute respiratory failure with hypoxia Current Visit: Yes Status: Acute (2) Perforated appendicitis Current Visit: Yes Status: Acute Objective Vital Signs - Last 8 Hours Temp Pulse Resp BP Pulse Ox 06/11/18 16:00 98.0 F 93 16 134/89 100 06/11/18 14:00 94 21 155/81 98 06/11/18 13:00 104 26 130/98 95 06/11/18 12:00 97.7 F 106 28 129/87 95 06/11/18 11:59 96 06/11/18 11:00 96 22 137/96 96 06/11/18 10:00 100 26 136/86 93 Intake and Output 06/11/18 06/11/18 06/11/18 07:59 15:59 23:59 Intake Total 100 / 100 200 / 200 Output Total 340 / 340 1855 / 1855 750 / 750 Balance -240 / -240 -1655 / -1655 -750 / -750 Intake: IV Fluids 100 / 100 200 / 200 Clinimix E 5%-15% SOLUTION 2, 0 / 0 000 ML @ 60 mls/hr IVC .Q24H [facility] with M.v.i. Adult 10 ml Rx# :[id number] Mycamine 100 MG In 0.9 % Sodium 100 / 100 Chloride (Mini-Bag +) 100 ML @ 100 mls/hr IVPB DAILY [facility] Rx#: [id number] Zosyn 3.375 GM In 0.9 % Sodium 100 / 100 100 / 100 Chloride (Mini-Bag +) 100 ML @ 25 mls/hr IVPB Q8H [facility] Rx#: [id number] Output: Catheter 325 / 325 1850 / 1850 750 / 750 Wound Drainage 15 5 / 5 0 / 0 Left Abdomen 5 / 5 0 / 0 0 / 0 Right Abdomen 10 5 / 5 0 / 0 Other: Weight 75.4 kg Blood Glucose* 117 99 173 Patient Weight 06/11/18 23:59 Weight 75.4 kg - Labs 06/11/18 03:45 06/11/18 03:45 Diabetes panel 06/11/18 Range/Units 03:45 Sodium 136 (136-145) mEq/L Potassium 4.0 (3.5-5.1) mEq/L Chloride 97 L (98-107) mEq/L Carbon Dioxide 32 H (23-29) mEq/L BUN 19 (6-20) mg/dL Creatinine 0.44 L (0.60-1.20) mg/dL Glucose 122 H (70-105) mg/dL Calcium 8.8 (8.6-10.3) mg/dL Calcium panel 06/11/18 Range/Units 03:45 Calcium 8.8 (8.6-10.3) mg/dL Phosphorus 5.0 H (2.7-4.5) mg/dL Pituitary panel 06/11/18 Range/Units 03:45 Sodium 136 (136-145) mEq/L Potassium 4.0 (3.5-5.1) mEq/L Chloride 97 L (98-107) mEq/L Carbon Dioxide 32 H (23-29) mEq/L BUN 19 (6-20) mg/dL Creatinine 0.44 L (0.60-1.20) mg/dL Glucose 122 H (70-105) mg/dL Calcium 8.8 (8.6-10.3) mg/dL Adrenal panel 06/11/18 Range/Units 03:45 Sodium 136 (136-145) mEq/L Potassium 4.0 (3.5-5.1) mEq/L Chloride 97 L (98-107) mEq/L Carbon Dioxide 32 H (23-29) mEq/L BUN 19 (6-20) mg/dL Creatinine 0.44 L (0.60-1.20) mg/dL Glucose 122 H (70-105) mg/dL Calcium 8.8 (8.6-10.3) mg/dL - Attending Attestation I examined this patient and my medical decision-making was reviewed with the Resident Physician. I agree with the documented findings, disposition and treatment plan as described except to the extent set forth below. The patient is seen and evaluated on morning rounds with resident. She is in the intensive care unit and tachypneic. She is battling hypoxia. The chest x- ray demonstrates a ground glass appearance that may be response to sepsis. Critical care is on board and I dressing the pulmonary hypoxia tissues. Drainage is serosanguineous. No evidence of feculent material or pus. Continue maximum supportive care. Kishore Ricci MD FACS
[2018-06-10] MEDS: Clinimix E 5%-15% SOLUTION 2,000 ML with MVI, adult with vitamin K 10 ML IVC SCH (16:06)
[2018-06-10] MEDS: MethylPREDNISolone 40 MG/ML VIAL IVP SCH ×2 (16:57→23:31)
[2018-06-10] MEDS ORDERED: Clinimix E 5%-15% SOLUTION 2,000 ML with MVI, adult with vitamin K 10 ML IVC SCH (17:00)
[2018-06-10] MEDS: Ketorolac 15 MG/ML VIAL IVP SCH (17:05)
[2018-06-11] MEDS: Acetylcysteine 10% 2 ML INHSOL IH SCH ×7 (00:06→23:13)
[2018-06-11] MEDS: Ipratropium/Albuterol Neb 3 ML IH SCH ×7 (00:06→23:13)
[2018-06-11] MEDS: Piperacillin/Tazobactam 3.375 GM in 0.9 % Sodium Chloride Mini Bag 100 ML IVPB SCH ×3 (02:42→17:13)
[2018-06-11] MEDS: Insulin LISPRO 300 UNITS/3 ML VIAL SQ SCH ×3 (03:58→11:57)
[2018-06-11 04:05] LABS: Basophils # 0.1 K/mcL (0.0-0.2); Basophils % 0.8 %; Eosinophils % 0.1 %; Hemoglobin 12.1 g/dL (11.5-15.4); Immature Granulocytes % 4.8 % (0-4); Lymphocytes # 2.1 K/mcL (0.6-4.6); Lymphocytes % 19.3 %; Mean Corpuscular HGB Conc 34.6 g/dL (31.6-35.5); Mean Corpuscular Volume 92.6 fL (83.0-100.0); Mean Platelet Volume 9.7 fL (9.4-12.4); Monocytes # 0.4 K/mcL (0.0-1.3); Monocytes % 3.3 %; Neutrophils # 7.9 K/mcL (1.6-8.9); Platelet Count 323 K/mcL (140-400); Red Blood Count 3.78 M/mcL (3.82-4.97); Red Cell Distribution Width 12.8 % (11.5-14.5); Segmented Neutrophils % 71.7 %
[2018-06-11 04:22] LABS: BUN/Creatinine Ratio 43 (6-26); Blood Urea Nitrogen 19 mg/dL (6-20); Calcium 8.8 mg/dL (8.6-10.3); Carbon Dioxide 32 mEq/L (23-29); Chloride 97 mEq/L (98-107); Glucose 122 mg/dL (70-105); Magnesium 1.5 mg/dL (1.6-2.6); Osmolality,Calculated 286 (280-300); Sodium 136 mEq/L (136-145); eGFR For Non-African Americans > 60 (> 60)
[2018-06-11 04:29] LABS: Platelet Estimate Normal (Normal); Reactive Lymphocytes Present (Not Present)
[2018-06-11] MEDS: *HR* Heparin 5,000 UNIT/ML VIAL SQ SCH ×3 (05:08→21:42)
--- NOTE | 2018-06-11 07:57 | Pulmonology Progress Note ---
<Billmary ellenDebbie gaffney M - Last Filed: 06/11/18 08:42> Date of Encounter: 06/11/18 Objective PUL Vital signs: Last Vital Signs Temp 97.4 F L 06/11/18 03:53 Pulse 95 06/11/18 08:00 Resp 23 06/11/18 08:00 BP 139/94 06/11/18 08:00 Pulse Ox 97 06/11/18 08:00 Results - Laboratory Findings CBC and BMP: 06/11/18 03:45 06/11/18 03:45 ABG ABG pH 7.39 pH Units (7.32-7.45) 06/09/18 21:59 ABG pCO2 45 mmHg (35-45) 06/09/18 21:59 ABG pO2 62 mmHg (85-104) L 06/09/18 21:59 ABG O2 Saturation 91 % (95-98) L 06/09/18 21:59 Abnormal lab findings: Abnormal lab results RBC 3.78 M/mcL (3.82-4.97) L 06/11/18 03:45 Hct 35.0 % (35.3-44.9) L 06/11/18 03:45 Immature Gran % 4.8 % (0-4) H 06/11/18 03:45 Reactive Lymphocytes Present (Not Present) A 06/11/18 03:45 ABG pO2 62 mmHg (85-104) L 06/09/18 21:59 ABG Total CO2 29 mEq/L (20-26) H 06/09/18 21:59 ABG O2 Saturation 91 % (95-98) L 06/09/18 21:59 Chloride 97 mEq/L (98-107) L 06/11/18 03:45 Carbon Dioxide 32 mEq/L (23-29) H 06/11/18 03:45 Creatinine 0.44 mg/dL (0.60-1.20) L 06/11/18 03:45 BUN/Creatinine Ratio 43 (6-26) H 06/11/18 03:45 Glucose 122 mg/dL (70-105) H 06/11/18 03:45 POC Glucose 189 mg/dL (70-99) H 06/11/18 08:07 Phosphorus 5.0 mg/dL (2.7-4.5) H 06/11/18 03:45 Magnesium 1.5 mg/dL (1.6-2.6) L 06/11/18 03:45 Triglycerides 151 mg/dL (< 150) H 06/10/18 04:19 - Microbiology Findings Microbiology Findings: Microbiology, Last 48 Hours 06/10/18 10:00 Blood Culture - Preliminary Peripheral Venipuncture Culture is incubating and being continuously monitored for growth. Final report to follow. 06/10/18 10:07 Blood Culture - Preliminary Peripheral Venipuncture Culture is incubating and being continuously monitored for growth. Final report to follow. - Clinical Findings Intake & Output: Intake & Output 06/10/18 06/11/18 06/11/18 23:59 07:59 15:59 Intake Total 1550 / 1550 100 / 100 Output Total 932 / 932 340 / 340 Balance 618 / 618 -240 / -240 Weight 75.4 kg Consult Discharge Plan - Plan Referrals: Stella Heaton MD [Primary Care Provider] - - Attending Attestation I examined this patient and my medical decision-making was reviewed with the Resident Physician. I agree with the documented findings, disposition and treatment plan as described except to the extent set forth below. Patient seen and examined. Labs, radiology, chart personally reviewed. 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 Patient is feeling much better and continue diuresis. Patient is stable from pulmonary standpoint to downgrade from ICU. Due to bronchodilators. Cardiovascular: stable GI: Nutrition per dietary and GI prophylaxis per routine Heme: DVT prophylaxis per routine ID: Continue antibiotics and plan to de-escalation Renal; urine out put and renal funtion reviewed Endorcine: blood glucose is monitored Lines: all lines checked and no evidence of infections Skin: skin care to prevent pressure ulcers per nursing routine care <Catalino Mcmahan - Last Filed: 06/11/18 13:01> Date of Encounter: 06/11/18 Time of Encounter: 07:57 Assessment and Plan (1) Acute respiratory failure with hypoxia Current Visit: Yes Status: Acute Secondary to COPD exacerbation and acute pulmonary edema Chest x-ray on June 10 showed worsening of interstitial and airspace opacities concerning for pneumonia or pulmonary edema Patient has been given 40 mg IV Lasix daily for the past 3 days with an output of 3940 noted on June 10 Patient is on Zosyn Continue duo nebs, and Solu-Medrol Strict I's and O's Currently holding TPN due to fluid overload status (2) Sepsis Current Visit: Yes Status: Acute Likely source perforated appendix with gram-negative bacteremia Patient is on Zosyn and micafungin Infectious disease consulted and is following Patient is currently afebrile, non-tachycardic, without leukocytosis. Patient is tachypnic-likely secondary to acute pulmonary edema Qualifiers: Sepsis type: sepsis due to unspecified organism Qualified Code(s): A41.9 - Sepsis, unspecified organism (3) Perforated appendicitis Current Visit: Yes Status: Acute Patient is postoperative day 4 from laparoscopic appendectomy with washout and debridement. Patient has 2 SHADI drains Patient is on Zosyn and micafungin Infectious disease consulted and is following Following surgical recommendations (4) COPD (chronic obstructive pulmonary disease) Current Visit: Yes Status: Suspected Patient is currently on 8 L/m via high flow nasal cannula after coming off BiPAP this morning Patient lungs are clear to auscultation bilaterally Continue on DuoNeb and Solu-Medrol BiPAP as needed Continue to monitor Qualifiers: COPD type: unspecified COPD Qualified Code(s): J44.9 - Chronic obstructive pulmonary disease, unspecified (5) Smoking history Current Visit: Yes Status: Chronic Patient has a [id number] history of tobacco abuse Recommend outpatient evaluation with pulmonary function testing (6) DVT prophylaxis Current Visit: Yes Status: Acute Subcutaneous heparin Subjective Principal diagnosis: Acute respiratory failure with hypoxia Interval history: Patient is a 58-year-old female presenting to [facility] ICU for acute respiratory failure with hypoxia. Patient is postoperative day #4 for an appendectomy with abdominal washout and laparoscopic debridement. No acute events overnight, patient is currently resting comfortably at 93% SaO2 on 8 L/m high flow nasal cannula. She is alert and oriented, conversational, and answers questions appropriately. Current plans to transfer patient to [address] [place] [address] [facility] pending results of chest x-ray per Dr. Ricci. Objective PUL Vital signs: Last Vital Signs Temp 97.4 F L 06/11/18 03:53 Pulse 89 06/11/18 06:00 Resp 22 06/11/18 06:00 BP 133/93 06/11/18 06:00 Pulse Ox 94 06/11/18 06:00 General appearance: no acute distress Eyes: nonicteric ENT: oropharynx moist Auscultation: bilateral: clear Cardiovascular: regular rate and rhythm Gastrointestinal: normoactive bowel sounds Integumentary: normal Extremities: no cyanosis non-focal exam Results - Laboratory Findings CBC and BMP: 06/11/18 03:45 06/11/18 03:45 ABG ABG pH 7.39 pH Units (7.32-7.45) 06/09/18 21:59 ABG pCO2 45 mmHg (35-45) 06/09/18 21:59 ABG pO2 62 mmHg (85-104) L 06/09/18 21:59 ABG O2 Saturation 91 % (95-98) L 06/09/18 21:59 Abnormal lab findings: Abnormal lab results RBC 3.78 M/mcL (3.82-4.97) L 06/11/18 03:45 Hct 35.0 % (35.3-44.9) L 06/11/18 03:45 Immature Gran % 4.8 % (0-4) H 06/11/18 03:45 Reactive Lymphocytes Present (Not Present) A 06/11/18 03:45 ABG pO2 62 mmHg (85-104) L 06/09/18 21:59 ABG Total CO2 29 mEq/L (20-26) H 06/09/18 21:59 ABG O2 Saturation 91 % (95-98) L 06/09/18 21:59 Chloride 97 mEq/L (98-107) L 06/11/18 03:45 Carbon Dioxide 32 mEq/L (23-29) H 06/11/18 03:45 Creatinine 0.44 mg/dL (0.60-1.20) L 06/11/18 03:45 BUN/Creatinine Ratio 43 (6-26) H 06/11/18 03:45 Glucose 122 mg/dL (70-105) H 06/11/18 03:45 POC Glucose 117 mg/dL (70-99) H 06/11/18 03:54 Phosphorus 5.0 mg/dL (2.7-4.5) H 06/11/18 03:45 Magnesium 1.5 mg/dL (1.6-2.6) L 06/11/18 03:45 Triglycerides 151 mg/dL (< 150) H 06/10/18 04:19 - Microbiology Findings Microbiology Findings: Microbiology, Last 48 Hours 06/10/18 10:00 Blood Culture - Preliminary Peripheral Venipuncture Culture is incubating and being continuously monitored for growth. Final report to follow. 06/10/18 10:07 Blood Culture - Preliminary Peripheral Venipuncture Culture is incubating and being continuously monitored for growth. Final report to follow. - Clinical Findings Intake & Output: Intake & Output 06/10/18 06/10/18 06/11/18 15:59 23:59 07:59 Intake Total 1208 / 1208 1550 / 1550 100 / 100 Output Total 2200 / 2200 932 / 932 340 / 340 Balance -992 / -992 618 / 618 -240 / -240 Weight 75.4 kg
[2018-06-11] MEDS: MethylPREDNISolone 40 MG/ML VIAL IVP SCH ×3 (08:11→23:25)
[2018-06-11] MEDS: Pantoprazole 40 MG VIAL IVP SCH (08:11)
[2018-06-11] MEDS: Nicotine 21 MG PATCH.TD24 TD SCH (08:11)
[2018-06-11] MEDS: Micafungin 100 MG in 0.9 % Sodium Chloride Mini Bag 100 ML IVPB SCH (08:11)
--- NOTE | 2018-06-11 08:37 | Electrocardiograph Report ---
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
--- NOTE | 2018-06-11 08:37 | Electrocardiograph Report ---
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
[2018-06-11] MEDS ORDERED: Furosemide 40 MG/4 ML VIAL IVP ONE (08:44)
[2018-06-11] MEDS: 0.9 % Sodium Chloride 1,000 ML IVC SCH (09:50)
--- NOTE | 2018-06-11 12:40 | General Surgery Progress Note ---
<Evie Pruitt - Last Filed: 06/11/18 13:27> Date of Encounter: 06/11/18 Time of Encounter: 12:36 - Assessment and Plan (1) Acute respiratory failure with hypoxia Current Visit: Yes Status: Acute Clinically improved with stable X-ray: Critical care recommends transfer to 2 N - transfer order completed - Hospitalist medicine consulted and can make decisions regarding continue diuretic - continue high flow NC 8L, titrate as needed - Bipap over night and as tolerated, prn (2) Perforated appendicitis Current Visit: Yes Status: Acute POD 3 of laproscopic appendectomy with partial removal of friable tissue due to rupture and abscess formation - continue zosyn and micufungin per ID recommendation - start clears - continue protonix - pain and nausea medications continued prn - TPN to be restarted per nutritions recommendations (3) Sepsis Current Visit: Yes Status: Acute Likely due to perforated appendicitis - see above Qualifiers: Sepsis type: sepsis due to unspecified organism Qualified Code(s): A41.9 - Sepsis, unspecified organism (4) DVT prophylaxis Current Visit: Yes Status: Acute heparin SQ Subjective Patient reports: no new complaints, feels better, pain is less, shortness of breath (tolerating ice chips), afebrile Objective Vital Signs - Last 8 Hours Temp Pulse Resp BP Pulse Ox 06/11/18 12:00 97.7 F 106 28 129/87 95 06/11/18 11:59 96 06/11/18 11:00 96 22 137/96 96 06/11/18 10:00 100 26 136/86 93 06/11/18 09:00 90 21 137/94 95 06/11/18 08:00 98.3 F 95 23 139/94 97 06/11/18 07:25 23 139/94 94 06/11/18 07:00 93 20 156/103 94 06/11/18 06:00 89 22 133/93 94 06/11/18 05:00 99 20 141/95 97 Intake and Output 06/10/18 06/11/18 06/11/18 23:59 07:59 15:59 Intake Total 1550 / 1550 100 / 100 100 / 100 Output Total 932 / 932 340 / 340 1855 / 1855 Balance 618 / 618 -240 / -240 -1755 / -1755 Intake: IV Fluids 1550 / 1550 100 / 100 100 / 100 Intralipid 20% 250 ML @ 21 mls/ 250 / 250 hr IVPB DAILY@1700 [facility] Rx#: [id number] Mycamine 100 MG In 0.9 % Sodium 100 / 100 100 / 100 Chloride (Mini-Bag +) 100 ML @ 100 mls/hr IVPB DAILY [facility] Rx#: [id number] Zosyn 3.375 GM In 0.9 % Sodium 200 / 200 100 / 100 Chloride (Mini-Bag +) 100 ML @ 25 mls/hr IVPB Q8H [facility] Rx#: [id number] Output: Catheter 900 / 900 325 / 325 1850 / 1850 Wound Drainage 5 5 Left Abdomen 0 / 0 Right Abdomen Other: Weight 75.4 kg Blood Glucose* 116 117 99 Patient Weight 06/11/18 23:59 Weight 75.4 kg - General physical appearance well developed, well nourished, no distress - Eyes normal ocular movement - ENT normal pinna, normal nares, normal mucosa, no hearing loss - Respiratory normal expansion, normal respiratory effort rales: bilateral - Cardiovascular Cardiovascular exam: Present: RRR, no murmurs/rubs/gallops - Abdomen Abdomen: Present: bowel sounds present, soft, non tender - Incision Incision: Present: draining, serosanguinous, approximated. Absent: red, inflamed - Neurologic normal coordination, normal sensation - Musculoskeletal normal posture - Psychiatric oriented to time, oriented to person, oriented to place, speech is normal - Labs 06/11/18 03:45 06/11/18 03:45 Diabetes panel 06/11/18 Range/Units 03:45 Sodium 136 (136-145) mEq/L Potassium 4.0 (3.5-5.1) mEq/L Chloride 97 L (98-107) mEq/L Carbon Dioxide 32 H (23-29) mEq/L BUN 19 (6-20) mg/dL Creatinine 0.44 L (0.60-1.20) mg/dL Glucose 122 H (70-105) mg/dL Calcium 8.8 (8.6-10.3) mg/dL Calcium panel 06/11/18 Range/Units 03:45 Calcium 8.8 (8.6-10.3) mg/dL Phosphorus 5.0 H (2.7-4.5) mg/dL Pituitary panel 06/11/18 Range/Units 03:45 Sodium 136 (136-145) mEq/L Potassium 4.0 (3.5-5.1) mEq/L Chloride 97 L (98-107) mEq/L Carbon Dioxide 32 H (23-29) mEq/L BUN 19 (6-20) mg/dL Creatinine 0.44 L (0.60-1.20) mg/dL Glucose 122 H (70-105) mg/dL Calcium 8.8 (8.6-10.3) mg/dL Adrenal panel 06/11/18 Range/Units 03:45 Sodium 136 (136-145) mEq/L Potassium 4.0 (3.5-5.1) mEq/L Chloride 97 L (98-107) mEq/L Carbon Dioxide 32 H (23-29) mEq/L BUN 19 (6-20) mg/dL Creatinine 0.44 L (0.60-1.20) mg/dL Glucose 122 H (70-105) mg/dL Calcium 8.8 (8.6-10.3) mg/dL Consult Discharge Plan - Plan Referrals: Stella Heaton MD [Primary Care Provider] - <Kishore Ricci - Last Filed: 06/11/18 17:56> Date of Encounter: 06/11/18 - Assessment and Plan (1) Acute respiratory failure with hypoxia Current Visit: Yes Status: Acute (2) Perforated appendicitis Current Visit: Yes Status: Acute Objective Vital Signs - Last 8 Hours Temp Pulse Resp BP Pulse Ox 06/11/18 16:00 98.0 F 96 16 134/89 100 06/11/18 14:00 94 21 155/81 98 06/11/18 13:00 104 26 130/98 95 06/11/18 12:00 97.7 F 106 28 129/87 95 06/11/18 11:59 96 06/11/18 11:00 96 22 137/96 96 06/11/18 10:00 100 26 136/86 93 Intake and Output 06/11/18 06/11/18 06/11/18 07:59 15:59 23:59 Intake Total 100 / 100 200 / 200 Output Total 340 / 340 1855 / 1855 750 / 750 Balance -240 / -240 -1655 / -1655 -750 / -750 Intake: IV Fluids 100 / 100 200 / 200 Clinimix E 5%-15% SOLUTION 2, 0 / 0 000 ML @ 60 mls/hr IVC .Q24H [facility] with M.v.i. Adult 10 ml Rx# :[id number] Mycamine 100 MG In 0.9 % Sodium 100 / 100 Chloride (Mini-Bag +) 100 ML @ 100 mls/hr IVPB DAILY [facility] Rx#: [id number] Zosyn 3.375 GM In 0.9 % Sodium 100 / 100 100 / 100 Chloride (Mini-Bag +) 100 ML @ 25 mls/hr IVPB Q8H [facility] Rx#: [id number] Output: Catheter 325 / 325 1850 / 1850 750 / 750 Wound Drainage 15 15 5 / 5 0 / 0 Left Abdomen 5 / 5 0 / 0 0 / 0 Right Abdomen 10 5 / 5 0 / 0 Other: Weight 75.4 kg Blood Glucose* 117 99 173 Patient Weight 06/11/18 23:59 Weight 75.4 kg - Labs 06/11/18 03:45 06/11/18 03:45 Diabetes panel 06/11/18 Range/Units 03:45 Sodium 136 (136-145) mEq/L Potassium 4.0 (3.5-5.1) mEq/L Chloride 97 L (98-107) mEq/L Carbon Dioxide 32 H (23-29) mEq/L BUN 19 (6-20) mg/dL Creatinine 0.44 L (0.60-1.20) mg/dL Glucose 122 H (70-105) mg/dL Calcium 8.8 (8.6-10.3) mg/dL Calcium panel 06/11/18 Range/Units 03:45 Calcium 8.8 (8.6-10.3) mg/dL Phosphorus 5.0 H (2.7-4.5) mg/dL Pituitary panel 06/11/18 Range/Units 03:45 Sodium 136 (136-145) mEq/L Potassium 4.0 (3.5-5.1) mEq/L Chloride 97 L (98-107) mEq/L Carbon Dioxide 32 H (23-29) mEq/L BUN 19 (6-20) mg/dL Creatinine 0.44 L (0.60-1.20) mg/dL Glucose 122 H (70-105) mg/dL Calcium 8.8 (8.6-10.3) mg/dL Adrenal panel 06/11/18 Range/Units 03:45 Sodium 136 (136-145) mEq/L Potassium 4.0 (3.5-5.1) mEq/L Chloride 97 L (98-107) mEq/L Carbon Dioxide 32 H (23-29) mEq/L BUN 19 (6-20) mg/dL Creatinine 0.44 L (0.60-1.20) mg/dL Glucose 122 H (70-105) mg/dL Calcium 8.8 (8.6-10.3) mg/dL - Attending Attestation I examined this patient and my medical decision-making was reviewed with the Resident Physician. I agree with the documented findings, disposition and treatment plan as described except to the extent set forth below. The patient is seen and evaluated with the medical student and the rest and on morning rounds. She continues with high oxygen requirements. She is 93% saturated on 8 L of oxygen. She is marginal to come out of the intensive care unit. I will defer to my pulmonology colleagues as to the best treatment for her respiratory distress syndrome. Yuri-Mireles drains have minimal serosanguineous drainage. She underwent debridement of appendiceal periappendiceal tissues laparoscopically and drain placement. She is doing well from surgery. Kishore Ricci MD FACS
[2018-06-11] MEDS ORDERED: *HR* Promethazine 25 MG/ML VIAL IVP PRN (13:28)
[2018-06-11] MEDS ORDERED: Ondansetron 4 MG/2 ML VIAL IVP PRN (13:28)
[2018-06-11] MEDS ORDERED: Clinimix E 5%-15% SOLUTION 2,000 ML with MVI, adult with vitamin K 10 ML IVC SCH ×3 (13:28→17:00)
[2018-06-11] MEDS ORDERED: D5% in Water 1,000 ML IVC PRN (13:28)
[2018-06-11] MEDS ORDERED: D10% in Water 500 ML IVC PRN (13:28)
[2018-06-11] MEDS ORDERED: *HR* Dextrose 50 % in Water (Syg) 50 ML SYRINGE IVP PRN (13:28)
[2018-06-11] MEDS ORDERED: Dextrose Gel 15 GM/37.5 ML TUBE PO PRN ×2 (13:28)
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
[2018-06-11] MEDS: Ketorolac 15 MG/ML VIAL IVP PRN (17:10)
[2018-06-11] MEDS: Clinimix E 5%-15% SOLUTION 2,000 ML with MVI, adult with vitamin K 10 ML IVC SCH (17:20)
[2018-06-11] MEDS: OXYCODONE Oral CONC 10 MG/0.5 ML ORAL.SYG SL PRN (21:40)
[2018-06-12] MEDS: Piperacillin/Tazobactam 3.375 GM in 0.9 % Sodium Chloride Mini Bag 100 ML IVPB SCH ×3 (01:49→17:56)
[2018-06-12] MEDS: Ipratropium/Albuterol Neb 3 ML IH SCH ×6 (03:33→23:15)
[2018-06-12] MEDS: Acetylcysteine 10% 2 ML INHSOL IH SCH ×6 (03:33→23:15)
[2018-06-12 04:59] LABS: Basophils # 0.1 K/mcL (0.0-0.2); Basophils % 0.5 %; Eosinophils % 0.1 %; Hematocrit 35.2 % (35.3-44.9); Hemoglobin 11.9 g/dL (11.5-15.4); Immature Granulocytes % 5.2 % (0-4); Lymphocytes # 1.8 K/mcL (0.6-4.6); Lymphocytes % 11.6 %; Mean Corpuscular HGB Conc 33.8 g/dL (31.6-35.5); Mean Corpuscular Hemoglobin 31.4 pg (28.0-33.3); Mean Corpuscular Volume 92.9 fL (83.0-100.0); Mean Platelet Volume 9.9 fL (9.4-12.4); Monocytes # 0.7 K/mcL (0.0-1.3); Monocytes % 4.2 %; Neutrophils # 12.3 K/mcL (1.6-8.9); Platelet Count 385 K/mcL (140-400); Red Blood Count 3.79 M/mcL (3.82-4.97); Red Cell Distribution Width 12.6 % (11.5-14.5); Segmented Neutrophils % 78.4 %
[2018-06-12 05:15] LABS: BUN/Creatinine Ratio 53 (6-26); Blood Urea Nitrogen 24 mg/dL (6-20); Calcium 8.8 mg/dL (8.6-10.3); Carbon Dioxide 33 mEq/L (23-29); Chloride 94 mEq/L (98-107); Glucose 173 mg/dL (70-105); Magnesium 1.7 mg/dL (1.6-2.6); Osmolality,Calculated 286 (280-300); Phosphorous 3.7 mg/dL (2.7-4.5); Potassium 3.6 mEq/L (3.5-5.1); Sodium 134 mEq/L (136-145); eGFR For Non-African Americans > 60 (> 60)
[2018-06-12] MEDS: *HR* Heparin 5,000 UNIT/ML VIAL SQ SCH ×3 (05:26→21:25)
[2018-06-12 06:12] LABS: Platelet Estimate Normal (Normal); Reactive Lymphocytes Present (Not Present)
[2018-06-12] MEDS: Nicotine 21 MG PATCH.TD24 TD SCH (07:55)
[2018-06-12] MEDS: MethylPREDNISolone 40 MG/ML VIAL IVP SCH (07:57)
[2018-06-12] MEDS: Micafungin 100 MG in 0.9 % Sodium Chloride Mini Bag 100 ML IVPB SCH (07:57)
[2018-06-12] MEDS: Pantoprazole 40 MG VIAL IVP SCH (07:57)
--- NOTE | 2018-06-12 08:19 | General Surgery Progress Note ---
Date of Encounter: 06/12/18 Time of Encounter: 08:17 - Assessment and Plan (1) Acute perforated appendicitis Current Visit: Yes Status: Inactive 58F with perforated appendicitis POD #4 s/p lap excisonal debridement of periappendiceal abscess; patient went into ARDS requiring BiPAP, currently on HFNC. Afebrile, but now with worsening WBC; drains still with serosanguinous drainage; neuro: cont current pain regimen; okay to stop toradol and change to ibuprofen 400mg q6hrs PRN cardiac: cont supportive care pulm: ARDS - cont supportive care; no need for intubation at present; albuterol as needed; pulm toileting is paramount; wean oxygen as tolerated GI: perf'd appendix s/p debridement with 2 19fr vasyl drains; cont drains; currently on CLD; okay to advance to FLD; if she tolerates, then will consider weaning TPN on 06/13; : trend UOP; d/c frank catheter ID: cont antimicorbial regimen; will wait to transition to PO; appreciate ID recommendations heme: cont chemical and mechanical dvt prophylaxis; endo: ISS; glucose < 150 is goal FEN: CLD, TPN, replete lytes; will begin TPN weaning on 06/13 dispo: okay to transfer to (2) Smoking history Current Visit: Yes Status: Chronic no smoking; can give nicotine patch if needed cont with albuterol (3) Electrolyte imbalance Current Visit: Yes Status: Acute add Na to TPN hypomagnesemia: mag sulfate hypokalemia: potassium chloride repeat labs in AM (4) Tachycardia Current Visit: Yes Status: Acute resolved Subjective Patient reports: no new complaints, feels better, still having pain, pain is less, tolerating liquids well, flatus, shortness of breath (improved), afebrile Objective Vital Signs - Last 8 Hours Temp Pulse Resp BP Pulse Ox 06/12/18 07:53 97.7 F 06/12/18 07:14 16 98 06/12/18 06:00 71 20 97 06/12/18 04:00 89 22 115/87 91 06/12/18 03:33 15 128/84 96 06/12/18 03:31 97.6 F 06/12/18 01:50 87 23 93 06/12/18 00:42 97.2 F L Intake and Output 09/30/18 10/01/18 10/01/18 23:59 07:59 15:59 Intake Total 100 / 100 Output Total 860 / 860 735 / 735 Balance -760 / -760 -735 / -735 Intake: IV Fluids 100 / 100 Zosyn 3.375 GM In 0.9 % Sodium 100 / 100 Chloride (Mini-Bag +) 100 ML @ 25 mls/hr IVPB Q8H ON LICENSE OF [facility] Rx#: [id number] Output: Catheter 850 / 850 700 / 700 Wound Drainage 35 Left Abdomen 0 / 0 Right Abdomen Other: Weight 158.98 kg Blood Glucose* 178 188 Patient Weight 06/12/18 23:59 Weight 158.98 kg - General physical appearance no distress - Respiratory normal expansion, other (slightly labored respiratory effort) - Cardiovascular Cardiovascular exam: Present: RRR - Abdomen Abdomen: Present: soft, distended, tender (mildy at umbilicus) - Incision Incision: Present: clean and dry, intact - Neurologic CN 2-12 grossly intact - Psychiatric oriented to time, oriented to person, oriented to place - Labs 06/12/18 04:20 06/12/18 04:20 Diabetes panel 06/12/18 Range/Units 04:20 Sodium 134 L (136-145) mEq/L Potassium 3.6 (3.5-5.1) mEq/L Chloride 94 L (98-107) mEq/L Carbon Dioxide 33 H (23-29) mEq/L BUN 24 H (6-20) mg/dL Creatinine 0.45 L (0.60-1.20) mg/dL Glucose 173 H (70-105) mg/dL Calcium 8.8 (8.6-10.3) mg/dL Calcium panel 06/12/18 Range/Units 04:20 Calcium 8.8 (8.6-10.3) mg/dL Phosphorus 3.7 (2.7-4.5) mg/dL Pituitary panel 06/12/18 Range/Units 04:20 Sodium 134 L (136-145) mEq/L Potassium 3.6 (3.5-5.1) mEq/L Chloride 94 L (98-107) mEq/L Carbon Dioxide 33 H (23-29) mEq/L BUN 24 H (6-20) mg/dL Creatinine 0.45 L (0.60-1.20) mg/dL Glucose 173 H (70-105) mg/dL Calcium 8.8 (8.6-10.3) mg/dL Adrenal panel 06/12/18 Range/Units 04:20 Sodium 134 L (136-145) mEq/L Potassium 3.6 (3.5-5.1) mEq/L Chloride 94 L (98-107) mEq/L Carbon Dioxide 33 H (23-29) mEq/L BUN 24 H (6-20) mg/dL Creatinine 0.45 L (0.60-1.20) mg/dL Glucose 173 H (70-105) mg/dL Calcium 8.8 (8.6-10.3) mg/dL - Imaging Chest x-ray: report reviewed, image reviewed Consult Discharge Plan - Plan Referrals: Stella Heaton MD [Primary Care Provider] -
[2018-06-12] MEDS ORDERED: Furosemide 40 MG/4 ML VIAL IVP ONE (09:00)
[2018-06-12] MEDS: OXYCODONE Oral CONC 10 MG/0.5 ML ORAL.SYG SL PRN ×2 (09:30→21:25)
--- NOTE | 2018-06-12 11:18 | Internal Med Progress Note ---
Hospitalist Progress Note - Encounter Date of Encounter: 06/12/18 Time of Encounter: 11:20 - Exam Vitals: Temp Pulse Resp BP Pulse Ox 97.7 F 79 20 132/85 96 06/12/18 07:53 06/12/18 10:00 06/12/18 10:00 06/12/18 10:00 06/12/18 10:00 Exam: Constitutional: No acute distress, Alert Psych: AAO x 3 HEENT: NCAT, EOMI Neck: supple, no JVD Cardio: regular rate and rhythm, +s1s2, no murmurs Resp: bibasilar crackles present Abd: soft, appropriately tender to palpation incisions covered with clean bandages clean dry and intact Extremities: no clubbing/cyanosis/edema appreciated Neuro: no focal deficits appreciated Lymph: no cervical/supraclavicular adenopathy apprecitated - Assessment and Plan (1) Acute respiratory failure with hypoxia Current Visit: Yes Status: Acute Assessment and Plan: Multifactorial suspect secondary to pulmonary edema and COPD exacerbation and multifocal pneumonia exacerbated by sepsis due to perforated viscus -Continue IV Lasix 20mg daily -IV steroids have been weaned to po -Incentive spirometer and encourage use -Continue IV Zosyn -On high flow nasal cannula, wean down as tolerated -Overall improving -Stable for transfer to stepdown when bed available (2) Perforated appendicitis Current Visit: Yes Status: Acute Assessment and Plan: -Status post laparoscopic appendectomy with partial removal of the friable tissue postoperative day #4 -Gen. surgery care and recommendations -Continue IV Zosyn and micafungin per ID recs -Clear liquid diet per surgery -Continue PPI (3) Sepsis Current Visit: Yes Status: Acute Assessment and Plan: -Secondary to perforated viscus -Resolved -Initial blood cultures are positive for gram-negative tani -Repeat blood cultures negative -Continue Zosyn and micafungin -ID following (4) COPD (chronic obstructive pulmonary disease) Current Visit: Yes Status: Suspected Assessment and Plan: -COPD with acute exacerbation -On po steroids and zsyn -StContinue oxygen supplementation as needed (5) Bacteremia due to Gram-negative bacteria Current Visit: Yes Status: Acute Assessment and Plan: -Initial blood cultures with gram-negative rods -Repeat blood cultures are negative to date -Continue Zosyn and micafungin -ID following (6) Hepatitis C Current Visit: Yes Status: Acute Assessment and Plan: -not treated due to insurance denial -encourraged outpatient GI follow-up for treatment (7) DVT prophylaxis Current Visit: Yes Status: Acute Assessment and Plan: -sub q heparin - Time Spent with Patient Total time spent is greater than 50% in coordination of care (as documented) at patient's floor/unit and/or counseling patient: Internal Medicine: Result - Labs CBC & Chem 7: 06/12/18 04:20 06/12/18 04:20 Labs: Short CBC 06/12/18 Range/Units 04:20 WBC 15.7 H (4.3-11.1) K/mcL Hgb 11.9 (11.5-15.4) g/dL Hct 35.2 L (35.3-44.9) % Plt Count 385 (140-400) K/mcL Neutrophils # 12.3 H (1.6-8.9) K/mcL BMP 06/12/18 04:20 Sodium 134 L Potassium 3.6 Chloride 94 L Carbon Dioxide 33 H BUN 24 H Creatinine 0.45 L Glucose 173 H Calcium 8.8 - ABG Interpretation ABG results: ABG ABG pH 7.39 pH Units (7.32-7.45) 06/09/18 21:59 ABG pCO2 45 mmHg (35-45) 06/09/18 21:59 ABG pO2 62 mmHg (85-104) L 06/09/18 21:59 ABG O2 Saturation 91 % (95-98) L 06/09/18 21:59 - Impressions Impressions Chest X-Ray 06/12/18 04:11 IMPRESSION: Improving aeration of the lungs suggesting slowly resolving pulmonary infiltrates. Unusual configuration to the aortic knob of uncertain etiology and significance. Attention on follow-up chest radiograph is recommended. If findings persist CT scan of the chest would prove helpful for complete assessment. D/ / 06/12/2018 07:51:48 Luke Zimmer MD / [email or web address] Interpreting Provider: Luke Zimmer MD Consult Discharge Plan - Plan Referrals: Stella Heaton MD [Primary Care Provider] - (3) Sepsis Qualifiers: Sepsis type: sepsis due to unspecified organism Qualified Code(s): A41.9 - Sepsis, unspecified organism (4) COPD (chronic obstructive pulmonary disease) Qualifiers: COPD type: unspecified COPD Qualified Code(s): J44.9 - Chronic obstructive pulmonary disease, unspecified (6) Hepatitis C Qualifiers: Viral hepatitis chronicity: chronic Hepatic coma status: without hepatic coma Qualified Code(s): B18.2 - Chronic viral hepatitis C
[2018-06-12] MEDS: Ketorolac 15 MG/ML VIAL IVP PRN (15:13)
--- NOTE | 2018-06-12 15:59 | Infectious Disease Progress No ---
Date of Encounter: 06/12/18 Time of Encounter: 10:10 - Assessment and Plan (1) Sepsis Current Visit: Yes Status: Resolved The patient had 3 sepsis criteria on admission. Likely secondary to perforated appendix. Improved. Tachycardia has resolved. Leukocytosis has improved. She did have a low-grade fever overnight with a MAXIMUM TEMPERATURE of 100.3. Blood cultures obtained 06/06/18 are +2 out of 2 sets for gram-negative tani, presumptively an anaerobe as it is slow growing. Repeat blood cultures drawn 06/10/18 are NGTD 2 sets. Qualifiers: Sepsis type: sepsis due to unspecified organism Qualified Code(s): A41.9 - Sepsis, unspecified organism (2) Bacteremia due to Gram-negative bacteria Current Visit: Yes Status: Acute Causative organism: Unclear. Blood cultures obtained 06/06/18 are +2 out of 2 sets for gram-negative rods. Given the slow growing characteristic of this bacteria, this is likely an anaerobe. Final ID and sensitivities are pending and has been sent to reference lab for assistance. Repeat blood cultures drawn 06/10/18 or today 2 sets. Likely secondary to perforated appendix. Continue Zosyn 3.375 g IV every 8 hours for now. Duration of treatment depends on the clinical picture. Monitor renal function and dose adjust antibiotics. (3) Perforated appendicitis Current Visit: Yes Status: Acute Status post laparoscopic debridement and abdominal washout 06/08/[address] Hurtado. No Intra-Op cultures were obtained. Continue Zosyn 3.375 g IV every 8 hours. Continue micafungin 100 mg IV daily. Duration of treatment depends on the clinical picture. Monitor renal and liver function and dose adjust antibiotics. (4) Acute respiratory failure with hypoxia Current Visit: Yes Status: Resolved Likely secondary to pulmonary edema. Chest x-ray completed 06/09/18 showed diffuse bilateral airspace disease concerning for R's versus pulmonary edema versus atypical infection. Repeat chest x-ray completed 06/12/18 showed improving aeration of the lung suggesting slowly resolving pulmonary infiltrates. Clinically improved. (5) Hepatitis C Current Visit: Yes Status: Acute Outpatient GI referral. Qualifiers: Viral hepatitis chronicity: chronic Hepatic coma status: without hepatic coma Qualified Code(s): B18.2 - Chronic viral hepatitis C (6) COPD (chronic obstructive pulmonary disease) Current Visit: Yes Status: Chronic Qualifiers: COPD type: unspecified COPD Qualified Code(s): J44.9 - Chronic obstructive pulmonary disease, unspecified - Subjective Interval history: Patient seen and examined. Weekend noted reviewed. Patient transferred to the ICU post-op for dyspnea and hypoxia. Clinically improved. Reports mild abdominal pain, but denies fevers, chills, or rigors. Denies chest pain, shortness of breath, or cough. Denies nausea, vomiting, or diarrhea. States she has not had a BM since surgery, but is passing gas. Denies oral thrush or new skin lesions. Infect Dis PN-Objective Data - Labs CBC & Chem 7: 06/13/18 06:40 06/13/18 06:40 Labs: Laboratory Results - last 24 hr 06/11/18 06/11/18 06/11/18 16:42 19:09 23:23 WBC RBC Hgb Hct MCV MCH MCHC RDW Plt Count MPV Immature Gran % Seg Neutrophils % Lymphocytes % Monocytes % Eosinophils % Basophils % Neutrophils # Lymphocytes # Monocytes # Eosinophils # Basophils # Reactive Lymphocytes Platelet Estimate Sodium Potassium Chloride Carbon Dioxide BUN Creatinine Est GFR ( Amer) Est GFR (Non-Af Amer) BUN/Creatinine Ratio Glucose POC Glucose 173 H 178 H 196 H Calculated Osmolality Calcium Phosphorus Magnesium Prealbumin 06/12/18 06/12/18 06/12/18 03:04 04:20 04:20 WBC RBC Hgb Hct MCV MCH MCHC RDW Plt Count MPV Immature Gran % Seg Neutrophils % Lymphocytes % Monocytes % Eosinophils % Basophils % Neutrophils # Lymphocytes # Monocytes # Eosinophils # Basophils # Reactive Lymphocytes Platelet Estimate Sodium 134 L Potassium 3.6 Chloride 94 L Carbon Dioxide 33 H BUN 24 H Creatinine 0.45 L Est GFR ( Amer) > 60 Est GFR (Non-Af Amer) > 60 BUN/Creatinine Ratio 53 H Glucose 173 H POC Glucose 198 H Calculated Osmolality 286 Calcium 8.8 Phosphorus 3.7 Magnesium 1.7 Prealbumin 4.4 L 06/12/18 06/12/18 06/12/18 04:20 07:32 11:33 WBC 15.7 H RBC 3.79 L Hgb 11.9 Hct 35.2 L MCV 92.9 MCH 31.4 MCHC 33.8 RDW 12.6 Plt Count 385 MPV 9.9 Immature Gran % 5.2 H Seg Neutrophils % 78.4 Lymphocytes % 11.6 Monocytes % 4.2 Eosinophils % 0.1 Basophils % 0.5 Neutrophils # 12.3 H Lymphocytes # 1.8 Monocytes # 0.7 Eosinophils # 0.0 Basophils # 0.1 Reactive Lymphocytes Present A Platelet Estimate Normal Sodium Potassium Chloride Carbon Dioxide BUN Creatinine Est GFR ( Amer) Est GFR (Non-Af Amer) BUN/Creatinine Ratio Glucose POC Glucose 188 H 142 H Calculated Osmolality Calcium Phosphorus Magnesium Prealbumin Cultures: Cultures 06/11/18 17:45 Sputum Culture - Final Sputum 06/10/18 10:00 Blood Culture - Preliminary Peripheral Venipuncture Culture is incubating and being continuously monitored for growth. Final report to follow. 06/10/18 10:07 Blood Culture - Preliminary Peripheral Venipuncture Culture is incubating and being continuously monitored for growth. Final report to follow. - Impressions Impressions Chest X-Ray 06/12/18 04:11 IMPRESSION: Improving aeration of the lungs suggesting slowly resolving pulmonary infiltrates. Unusual configuration to the aortic knob of uncertain etiology and significance. Attention on follow-up chest radiograph is recommended. If findings persist CT scan of the chest would prove helpful for complete assessment. D/ / 06/12/2018 07:51:48 Luke Zimmer MD / [email or web address] Interpreting Provider: Luke Zimmer MD Exam - Constitutional Vitals: Temp Pulse Resp BP Pulse Ox 98.1 F 78 19 142/92 94 06/12/18 15:54 06/12/18 15:54 06/12/18 15:54 06/12/18 15:54 06/12/18 15:54 General appearance: average body habitus, cooperative, no acute distress - Head Head exam: Present: atraumatic, normal inspection, normocephalic - Eye Eye exam: Present: EOMI, normal appearance, PERRL Pupils: Present: normal accommodation - ENT ENT exam: Present: mucous membranes moist - Neck Neck exam: Present: normal inspection - Respiratory Respiratory exam: Present: CTAB. Absent: rales, respiratory distress, rhonchi, wheezes - Cardiovascular Cardiovascular exam: Present: RRR, +S1, +S2 - GI/Abdominal GI/Abdominal exam: Present: normal bowel sounds, soft, tenderness (mild, generalized). Absent: distended Additional comments: SHADI drain x2 noted to the lower abdomen with small amount of serosanguinous drainage noted. Fallon-umbilical surgical site noted with anam intact. - Extremities Exam Extremities exam: Present: normal inspection. Absent: joint swelling, pedal edema, tenderness - Neurological Exam Neurological exam: Present: alert, oriented X3, no focal deficits - Psychiatric Psychiatric exam: Present: normal affect, normal mood - Skin Skin exam: Present: dry, intact, normal color, warm Consult Discharge Plan - Plan Referrals: Stella Heaton MD [Primary Care Provider] - - Attending Attestation I examined this patient and my medical decision-making was reviewed with the Resident Physician. I agree with the documented findings, disposition and treatment plan as described except to the extent set forth below.
[2018-06-12] MEDS ORDERED: Clinimix E 5%-15% SOLUTION 2,000 ML with MVI, adult with vitamin K 10 ML IVC SCH (17:00)
[2018-06-13] MEDS: Ketorolac 15 MG/ML VIAL IVP PRN ×2 (00:55→06:44)
[2018-06-13] MEDS: OXYCODONE Oral CONC 10 MG/0.5 ML ORAL.SYG SL PRN ×2 (02:24→21:08)
[2018-06-13] MEDS: Piperacillin/Tazobactam 3.375 GM in 0.9 % Sodium Chloride Mini Bag 100 ML IVPB SCH ×3 (02:24→17:58)
[2018-06-13] MEDS: Ipratropium/Albuterol Neb 3 ML IH SCH ×6 (04:18→22:57)
[2018-06-13] MEDS: Acetylcysteine 10% 2 ML INHSOL IH SCH ×6 (04:18→22:57)
[2018-06-13] MEDS: *HR* Heparin 5,000 UNIT/ML VIAL SQ SCH ×3 (06:13→21:06)
[2018-06-13 07:18] LABS: Hematocrit 38.1 % (35.3-44.9); Hemoglobin 12.6 g/dL (11.5-15.4); Mean Corpuscular HGB Conc 33.1 g/dL (31.6-35.5); Mean Corpuscular Hemoglobin 31.6 pg (28.0-33.3); Mean Corpuscular Volume 95.5 fL (83.0-100.0); Mean Platelet Volume 9.8 fL (9.4-12.4); Platelet Count 367 K/mcL (140-400); Red Blood Count 3.99 M/mcL (3.82-4.97); Red Cell Distribution Width 12.6 % (11.5-14.5)
[2018-06-13 07:41] LABS: BUN/Creatinine Ratio 48 (6-26); Blood Urea Nitrogen 22 mg/dL (6-20); Calcium 8.6 mg/dL (8.6-10.3); Carbon Dioxide 34 mEq/L (23-29); Chloride 99 mEq/L (98-107); Glucose 116 mg/dL (70-105); Magnesium 1.8 mg/dL (1.6-2.6); Osmolality,Calculated 286 (280-300); Phosphorous 2.7 mg/dL (2.7-4.5); Potassium 3.5 mEq/L (3.5-5.1); Sodium 136 mEq/L (136-145); eGFR For Non-African Americans > 60 (> 60)
--- NOTE | 2018-06-13 08:01 | General Surgery Progress Note ---
<Evie Pruitt - Last Filed: 06/13/18 08:02> Date of Encounter: 06/13/18 Time of Encounter: 07:58 - Assessment and Plan (1) Acute respiratory failure with hypoxia Current Visit: Yes Status: Acute Clinically improved with stable X-ray yesterday. Hospitalist medicine consulted , appreciate recommendations regarding continue diuretic and newly diagnosed COPD, may consider consult pulmonary for new diagnosis and out patient f/u as they are familiar with her from ICU - continue to wean oxygen from 3L - PT/OT to see - continue RT consult (2) Perforated appendicitis Current Visit: Yes Status: Acute POD 5 of laproscopic appendectomy with partial removal of friable tissue due to rupture and abscess formation - improving - continue zosyn and micufungin per ID recommendation - start regular diet, advance as tolerated - change pain mediations to scheduled Tylenol and Toradol -with oxycodone prn -nausea medications continued prn - TPN to be weaned today (3) Sepsis Current Visit: Yes Status: Acute Likely due to perforated appendicitis - see above Qualifiers: Sepsis type: sepsis due to unspecified organism Qualified Code(s): A41.9 - Sepsis, unspecified organism (4) DVT prophylaxis Current Visit: Yes Status: Acute heparin SQ Subjective Patient reports: still having pain, tolerating liquids well, flatus, no bowel movement, shortness of breath, afebrile Narrative: decreased cough and shortness of breath, RLQ pain has increased overnight, tolerating fulls with out nausea Objective Vital Signs - Last 8 Hours Temp Pulse Resp BP Pulse Ox 06/13/18 04:52 97.7 F 81 16 135/69 94 06/13/18 04:18 16 95 06/13/18 00:39 98.2 F 87 18 143/89 94 Intake and Output 06/12/18 06/12/18 06/13/18 15:59 23:59 07:59 Intake Total 680 / 680 680 / 680 Output Total 2049 / 2049 1100 / 1100 1020 / 1020 Balance -1370 / -1370 -420 / -420 -1020 / -1020 Intake: IV Fluids 200 / 200 350 / 350 Intralipid 20% 250 ML @ 21 mls/ 250 / 250 hr IVPB DAILY@1700 [facility] Rx#: [id number] Mycamine 100 MG In 0.9 % Sodium 100 / 100 Chloride (Mini-Bag +) 100 ML @ 100 mls/hr IVPB DAILY [facility] Rx#: [id number] Zosyn 3.375 GM In 0.9 % Sodium 100 / 100 100 / 100 Chloride (Mini-Bag +) 100 ML @ 25 mls/hr IVPB Q8H [facility] Rx#: [id number] Oral 480 / 480 330 / 330 Output: Urine 0 / 0 1100 / 1100 1000 / 1000 Wound Drainage Left Abdomen Right Abdomen Other: Meal Lunch Percent of Meal Consumed 100% Weight 68.039 kg 76.7 kg Blood Glucose* 142 170 135 Patient Weight 06/13/18 23:59 Weight 76.7 kg - General physical appearance well developed, well nourished, no distress - Eyes PERRL, normal ocular movement - ENT normal pinna, normal nares, normal mucosa, no hearing loss - Respiratory normal expansion, normal respiratory effort wheezing: bilateral (improved, cough) - Cardiovascular Cardiovascular exam: Present: RRR, no murmurs/rubs/gallops - Abdomen Abdomen: Present: bowel sounds present, soft Abdominal Tenderness: RLQ Hernia: none - Incision Incision: Present: draining, serosanguinous, approximated. Absent: swollen, inflamed, indurated - Integumentary no rash, no growths, no abnormal pigmentation - Neurologic CN 2-12 grossly intact, normal coordination, normal sensation - Musculoskeletal normal posture - Psychiatric oriented to time, oriented to person, oriented to place, speech is normal, memory intact - Labs 06/13/18 06:40 06/13/18 06:40 Diabetes panel 06/13/18 Range/Units 06:40 Sodium 136 (136-145) mEq/L Potassium 3.5 (3.5-5.1) mEq/L Chloride 99 (98-107) mEq/L Carbon Dioxide 34 H (23-29) mEq/L BUN 22 H (6-20) mg/dL Creatinine 0.46 L (0.60-1.20) mg/dL Glucose 116 H (70-105) mg/dL Calcium 8.6 (8.6-10.3) mg/dL Calcium panel 06/13/18 Range/Units 06:40 Calcium 8.6 (8.6-10.3) mg/dL Phosphorus 2.7 (2.7-4.5) mg/dL Pituitary panel 06/13/18 Range/Units 06:40 Sodium 136 (136-145) mEq/L Potassium 3.5 (3.5-5.1) mEq/L Chloride 99 (98-107) mEq/L Carbon Dioxide 34 H (23-29) mEq/L BUN 22 H (6-20) mg/dL Creatinine 0.46 L (0.60-1.20) mg/dL Glucose 116 H (70-105) mg/dL Calcium 8.6 (8.6-10.3) mg/dL Adrenal panel 06/13/18 Range/Units 06:40 Sodium 136 (136-145) mEq/L Potassium 3.5 (3.5-5.1) mEq/L Chloride 99 (98-107) mEq/L Carbon Dioxide 34 H (23-29) mEq/L BUN 22 H (6-20) mg/dL Creatinine 0.46 L (0.60-1.20) mg/dL Glucose 116 H (70-105) mg/dL Calcium 8.6 (8.6-10.3) mg/dL Consult Discharge Plan - Plan Referrals: Stella Heaton MD [Primary Care Provider] - <Dale Small J - Last Filed: 06/13/18 22:06> Date of Encounter: 06/13/18 - Assessment and Plan (1) Acute perforated appendicitis Current Visit: Yes Status: Inactive (2) Smoking history Current Visit: Yes Status: Chronic (3) Electrolyte imbalance Current Visit: Yes Status: Acute (4) Tachycardia Current Visit: Yes Status: Acute Objective Vital Signs - Last 8 Hours Temp Pulse Resp BP Pulse Ox 06/13/18 20:48 98.1 F 83 17 114/78 95 06/13/18 19:28 15 96 06/13/18 16:03 97.8 F 91 16 107/73 97 Intake and Output 06/13/18 06/13/18 06/13/18 07:59 15:59 23:59 Intake Total 100 / 100 1620 / 1620 633 / 633 Output Total 1020 / 1020 45 / 45 Balance -920 / -920 1575 / 1575 633 / 633 Intake: IV Fluids 100 / 100 1380 / 1380 393 / 393 Clinimix E 5%-15% SOLUTION 2, 1180 / 1180 393 / 393 000 ML @ 75 mls/hr IVC .Q24H [facility] with M.v.i. Adult 10 ml Rx# :[id number] Mycamine 100 MG In 0.9 % Sodium 100 / 100 Chloride (Mini-Bag +) 100 ML @ 100 mls/hr IVPB DAILY [facility] Rx#: [id number] Zosyn 3.375 GM In 0.9 % Sodium 100 / 100 100 / 100 Chloride (Mini-Bag +) 100 ML @ 25 mls/hr IVPB Q8H [facility] Rx#: [id number] Oral 240 / 240 240 / 240 Output: Urine 1000 / 1000 Wound Drainage 45 / 45 Left Abdomen 40 / 40 Right Abdomen Other: Meal Lunch Dinner Percent of Meal Consumed 90% 100% # Voids 3 Weight 76.7 kg Blood Glucose* 135 115 136 Patient Weight 06/13/18 23:59 Weight 76.7 kg - Labs 06/13/18 06:40 06/13/18 06:40 Diabetes panel 06/13/18 Range/Units 06:40 Sodium 136 (136-145) mEq/L Potassium 3.5 (3.5-5.1) mEq/L Chloride 99 (98-107) mEq/L Carbon Dioxide 34 H (23-29) mEq/L BUN 22 H (6-20) mg/dL Creatinine 0.46 L (0.60-1.20) mg/dL Glucose 116 H (70-105) mg/dL Calcium 8.6 (8.6-10.3) mg/dL Calcium panel 06/13/18 Range/Units 06:40 Calcium 8.6 (8.6-10.3) mg/dL Phosphorus 2.7 (2.7-4.5) mg/dL Pituitary panel 06/13/18 Range/Units 06:40 Sodium 136 (136-145) mEq/L Potassium 3.5 (3.5-5.1) mEq/L Chloride 99 (98-107) mEq/L Carbon Dioxide 34 H (23-29) mEq/L BUN 22 H (6-20) mg/dL Creatinine 0.46 L (0.60-1.20) mg/dL Glucose 116 H (70-105) mg/dL Calcium 8.6 (8.6-10.3) mg/dL Adrenal panel 06/13/18 Range/Units 06:40 Sodium 136 (136-145) mEq/L Potassium 3.5 (3.5-5.1) mEq/L Chloride 99 (98-107) mEq/L Carbon Dioxide 34 H (23-29) mEq/L BUN 22 H (6-20) mg/dL Creatinine 0.46 L (0.60-1.20) mg/dL Glucose 116 H (70-105) mg/dL Calcium 8.6 (8.6-10.3) mg/dL - Attending Attestation patient seen and examined. i have reviewed all labs, imaging, and notes. i agree with the above assessment and plan and wish to add the following... afebrile; pain controlled with medications; tolerating FLD; ADAT SLIV wean oxygen wean TPN possible d/c on 06/14
[2018-06-13] MEDS: Clinimix E 5%-15% SOLUTION 2,000 ML with MVI, adult with vitamin K 10 ML IVC SCH (08:57)
[2018-06-13] MEDS ORDERED: predniSONE 20 MG TABLET PO SCH (09:00)
--- NOTE | 2018-06-13 09:57 | Infectious Disease Progress No ---
Date of Encounter: 06/13/18 Time of Encounter: 09:54 - Assessment and Plan (1) Sepsis Status: Resolved The patient had 3 sepsis criteria on admission. Likely secondary to perforated appendix. Improved. Tachycardia has resolved. Leukocytosis has improved. Afebrile overnight. Blood cultures obtained 06/06/18 are +2 out of 2 sets for gram-negative tani, presumptively an anaerobe as it is slow growing. Repeat blood cultures drawn 06/10/18 are NGTD 2 sets. Qualifiers: Sepsis type: sepsis due to unspecified organism Qualified Code(s): A41.9 - Sepsis, unspecified organism (2) Bacteremia due to Gram-negative bacteria Status: Acute Causative organism: Unclear. Blood cultures obtained 06/06/18 are +2 out of 2 sets for gram-negative rods. Given the slow growing characteristic of this bacteria, this is likely an anaerobe. Final ID and sensitivities are pending and has been sent to reference lab for assistance. Repeat blood cultures drawn 06/10/18 NGTD 2 sets. Likely secondary to perforated appendix. Continue Zosyn 3.375 g IV every 8 hours for now. Duration of treatment depends on the clinical picture. Monitor renal function and dose adjust antibiotics. (3) Perforated appendicitis Status: Resolved POD # 5 Status post laparoscopic debridement and abdominal washout 06/08/[address] Hurtado. No Intra-Op cultures were obtained. Continue Zosyn 3.375 g IV every 8 hours. Continue micafungin 100 mg IV daily. Duration of treatment depends on the clinical picture. Can likely transition to PO antibiotics when ready for discharge. Check LFTs now. Monitor renal and liver function and dose adjust antibiotics. (4) Acute respiratory failure with hypoxia Status: Resolved Likely secondary to pulmonary edema. Chest x-ray completed 06/09/18 showed diffuse bilateral airspace disease concerning for ARDS versus pulmonary edema versus atypical infection. Repeat chest x-ray completed 06/12/18 showed improving aeration of the lung suggesting slowly resolving pulmonary infiltrates. Clinically improved. O2 down to 2L NC and the patient did not require BIPAP overnight. (5) Hepatitis C Status: Acute Outpatient GI referral. Qualifiers: Viral hepatitis chronicity: chronic Hepatic coma status: without hepatic coma Qualified Code(s): B18.2 - Chronic viral hepatitis C (6) COPD (chronic obstructive pulmonary disease) Status: Suspected Qualifiers: COPD type: unspecified COPD Qualified Code(s): J44.9 - Chronic obstructive pulmonary disease, unspecified - Subjective Interval history: Patient seen and examined. Patient transferred to the ICU post-op for dyspnea and hypoxia. Clinically improved and transferred to stepdown yesterday. Reports mild abdominal pain mainly in the RLQ, but denies fevers, chills, or rigors. Denies chest pain, shortness of breath, or cough. Denies nausea, vomiting, or diarrhea. States she has not had a BM since surgery, but is passing gas. Tolerating full diet. Denies oral thrush or new skin lesions. Infect Dis PN-Objective Data - Labs CBC & Chem 7: 06/14/18 06:52 06/14/18 04:50 Labs: Laboratory Results - last 24 hr 06/12/18 06/12/18 06/13/18 11:33 21:17 06:40 WBC 11.8 H RBC 3.99 Hgb 12.6 Hct 38.1 MCV 95.5 MCH 31.6 MCHC 33.1 RDW 12.6 Plt Count 367 MPV 9.8 Sodium Potassium Chloride Carbon Dioxide BUN Creatinine Est GFR ( Amer) Est GFR (Non-Af Amer) BUN/Creatinine Ratio Glucose POC Glucose 142 H 170 H Calculated Osmolality Calcium Phosphorus Magnesium 06/13/18 06:40 WBC RBC Hgb Hct MCV MCH MCHC RDW Plt Count MPV Sodium 136 Potassium 3.5 Chloride 99 Carbon Dioxide 34 H BUN 22 H Creatinine 0.46 L Est GFR ( Amer) > 60 Est GFR (Non-Af Amer) > 60 BUN/Creatinine Ratio 48 H Glucose 116 H POC Glucose Calculated Osmolality 286 Calcium 8.6 Phosphorus 2.7 Magnesium 1.8 Cultures: Cultures 06/11/18 17:45 Sputum Culture - Final Sputum 06/10/18 10:00 Blood Culture - Preliminary Peripheral Venipuncture Culture is incubating and being continuously monitored for growth. Final report to follow. 06/10/18 10:07 Blood Culture - Preliminary Peripheral Venipuncture Culture is incubating and being continuously monitored for growth. Final report to follow. - Impressions Impressions Chest X-Ray 06/12/18 04:11 IMPRESSION: Improving aeration of the lungs suggesting slowly resolving pulmonary infiltrates. Unusual configuration to the aortic knob of uncertain etiology and significance. Attention on follow-up chest radiograph is recommended. If findings persist CT scan of the chest would prove helpful for complete assessment. D/ / 06/12/2018 07:51:48 Luke Zimmer MD / pedro Interpreting Provider: Luke Zimmer MD Exam - Constitutional Vitals: Temp Pulse Resp BP Pulse Ox 98.0 F 86 16 124/80 95 06/13/18 08:07 06/13/18 08:07 06/13/18 08:07 06/13/18 08:07 06/13/18 08:07 General appearance: average body habitus, cooperative, no acute distress - Head Head exam: Present: atraumatic, normal inspection, normocephalic - Eye Eye exam: Present: EOMI, normal appearance, PERRL Pupils: Present: normal accommodation - ENT ENT exam: Present: mucous membranes moist - Neck Neck exam: Present: normal inspection - Respiratory Respiratory exam: Present: CTAB. Absent: rales, respiratory distress, rhonchi, wheezes - Cardiovascular Cardiovascular exam: Present: RRR, +S1, +S2 - GI/Abdominal GI/Abdominal exam: Present: normal bowel sounds, soft, tenderness (RLQ, mild). Absent: distended Additional comments: Fallon-umbilical surgical site with anam intact. No surrounding erythema, warmth, or drainage noted. SHADI drain noted to the lower abdomen x 2 with serosanguinous drainage noted. - Extremities Exam Extremities exam: Present: normal inspection. Absent: joint swelling, pedal edema, tenderness - Neurological Exam Neurological exam: Present: alert, oriented X3, no focal deficits - Psychiatric Psychiatric exam: Present: normal affect, normal mood - Skin Skin exam: Present: dry, intact, normal color, warm - Additional findings Additional findings: PICC line noted to the RUE With transparent dressing C/D/I. TPN infusing. Consult Discharge Plan - Plan Instructions: How to Stop Smoking (GEN), Appendicitis (GEN), Sepsis (DC) Additional Instructions: Please attend follow up appt with Dr Small in two weeks. Continue to advance diet as tolerated. Please call your PCP office to follow up about your new diagnosis if COPD and need for inhalers. Please call your pain medication prescriber to make them aware that we are treating your post surgical pain so they may change their treatment as needed and you do General Surgical Discharge Instructions 1. No pushing, pulling, or lifting greater than 15 lbs for 2-4 weeks (depending upon procedure). 2. You may shower beginning today, but no tub baths, soaking, or swimming for 2 weeks. 3. You may resume driving when you are off narcotics and are safe to react in a car. 4. Take ibuprofen every 8 hours for discomfort. If this does not relieve discomfort, you may take the as needed Percocet. Take narcotics as directed. Do not take more narcotics then directed and do not share your narcotics with any other person. Do not drink alcohol while on narcotics. 5. Take stool softeners (Colace) or a water based laxative (Miralax) while taking narcotics. You may hold for loose stools. 6. Report any fevers greater than 100.5F, increase abdominal discomfort, drainage that looks like pus, increased redness or pain at the surgical site, or any vomiting. 7. Report any pain in the calves, shortness of breath, or rapid heartbeat. 8. Follow-up in the office as directed. 9. If you were prescribed antibiotics, do not stop them without talking to your provider. Referrals: Dale Small MD [Non-Partnered Physician] - 06/28/18 9:00 am Stella Heaton MD [Primary Care Provider] - 06/20/18 9:00 am (Please follow up as sschedule...) Prescriptions: Albuterol Sulfate [Albuterol Inhaler] 2 puff IH Q4HR #1 hfa.aer.ad OxyCODONE/APAP 10/325 [Percocet 10/325 MG] 1 each PO Q6HR PRN 7 Days #30 tablet PRN Reason: Pain Ibuprofen 800 mg PO Q8HR #42 tablet Ondansetron HCl [Zofran] 4 mg PO Q8HR PRN #14 tab PRN Reason: Nausea And Vomiting Amoxicillin/Clavulanate [Augmentin] 875 mg PO TIDWM 14 Days #42 tablet Docusate [Colace] 100 mg PO BID #30 capsule methylPREDNISolone [Medrol] 20 mg PO DAILY #1 tab methylPREDNISolone [Medrol] 10 mg PO DAILY #2 tablet - Attending Attestation I examined this patient and my medical decision-making was reviewed with the Resident Physician. I agree with the documented findings, disposition and treatment plan as described except to the extent set forth below.
[2018-06-13] MEDS: Furosemide 20 MG/2 ML VIAL IVP SCH (10:11)
[2018-06-13] MEDS: Pantoprazole 40 MG VIAL IVP SCH (10:11)
[2018-06-13] MEDS: Nicotine 21 MG PATCH.TD24 TD SCH (10:11)
--- NOTE | 2018-06-13 10:15 | Internal Med Progress Note ---
Hospitalist Progress Note - Encounter Date of Encounter: 06/13/18 Time of Encounter: 10:11 - Subjective Interval History: Patient seen and evaluated at bedside, denies abdominal pain, nausea or vomiting. Reports that she has been passing gas. Started on regular diet today as per surgery recommendation, tolerated well. Reports that her respiratory status has significantly improved. No BiPAP overnight. On 2 L of oxygen by nasal cannula, denies shortness of breath or chest pain. - Exam Vitals: Temp Pulse Resp BP Pulse Ox 98.0 F 86 16 124/80 95 06/13/18 08:07 06/13/18 08:07 06/13/18 08:07 06/13/18 08:07 06/13/18 08:07 Exam: General: Alert and orientedx4. In no acute distress. Cardiovascular:RRR, Normal S1 & S2, no rubs, murmurs or gallops. Lungs: Clear breath sounds auscultation bilaterally, no wheezes or crackles, rales. Abdomen: Soft, non-tender, no rigidity. NABS in all 4 quadrants. B/L Drains in R and L lower quadrants. Extremities: No deformity, no edema or tenderness, no joint swelling or clubbing. Neurological: Normal cognition and motor skills. CN II-XII intact Rest of the physical exam is non contributory - Assessment and Plan (1) Perforated appendicitis Current Visit: Yes Status: Acute Assessment and Plan: POD 5 of laproscopic appendectomy with partial removal of friable tissue due to rupture and abscess formation - improving Bilateral abdominal drains. left drain with about 75 mls of serous sanguineous fluids secretion. RLQ drain in about 30 mls. ID on board recommended Piperacillin/Tazobactam plus Micafungin Started on a diet per surgery recommendations. (2) Sepsis Current Visit: Yes Status: Resolved Assessment and Plan: Sepsis picture on presentation has resolved. Patient no longer febrile, hemodynamycally stable. Mild leukocytosis is multifactorial. patient on prednosine. (3) COPD (chronic obstructive pulmonary disease) Current Visit: Yes Status: Chronic Assessment and Plan: No on acute exacerbation. chest is clear to auscultation b/l. Plan: will attempt to wean the patient off Oxygen, currently on 2 litters of O2 by nasal cannula. Continue Nebds PRN Will start titrating off steroids. Decrease prednisone to 20mg/PO daily. Patient educated about smoking cessation (4) Bacteremia due to Gram-negative bacteria Current Visit: Yes Status: Acute Assessment and Plan: B/C on 06/06 grew gram negative rods. Repeat blood culture no growth so far. Pending final report. Patient on piperacillin/tazobactam as per ID recommendations. (5) Acute respiratory failure with hypoxia Current Visit: Yes Status: Resolved Assessment and Plan: Respiratory status has significantly improved. Patient on 2 litters of O2 by nasal cannula. Will titrate the patient off oxygen. (6) Hepatitis C Current Visit: Yes Status: Acute Assessment and Plan: -not treated due to insurance denial outpatient GI follow-up for treatment (7) DVT prophylaxis Current Visit: Yes Status: Acute Assessment and Plan: Patient on Heparin 5000 units SubQ BID for DVT prophylaxis - Time Spent with Patient Total time spent is greater than 50% in coordination of care (as documented) at patient's floor/unit and/or counseling patient: Internal Medicine: Result - Labs CBC & Chem 7: 06/13/18 06:40 06/13/18 06:40 Labs: Short CBC 06/13/18 Range/Units 06:40 WBC 11.8 H (4.3-11.1) K/mcL Hgb 12.6 (11.5-15.4) g/dL Hct 38.1 (35.3-44.9) % Plt Count 367 (140-400) K/mcL BMP 06/13/18 06:40 Sodium 136 Potassium 3.5 Chloride 99 Carbon Dioxide 34 H BUN 22 H Creatinine 0.46 L Glucose 116 H Calcium 8.6 - ABG Interpretation ABG results: ABG ABG pH 7.39 pH Units (7.32-7.45) 06/09/18 21:59 ABG pCO2 45 mmHg (35-45) 06/09/18 21:59 ABG pO2 62 mmHg (85-104) L 06/09/18 21:59 ABG O2 Saturation 91 % (95-98) L 06/09/18 21:59 Consult Discharge Plan - Plan Referrals: Stella Heaton MD [Primary Care Provider] - (2) Sepsis Qualifiers: Sepsis type: sepsis due to unspecified organism Qualified Code(s): A41.9 - Sepsis, unspecified organism (3) COPD (chronic obstructive pulmonary disease) Qualifiers: COPD type: unspecified COPD Qualified Code(s): J44.9 - Chronic obstructive pulmonary disease, unspecified (6) Hepatitis C Qualifiers: Viral hepatitis chronicity: chronic Hepatic coma status: without hepatic coma Qualified Code(s): B18.2 - Chronic viral hepatitis C
[2018-06-13] MEDS: Micafungin 100 MG in 0.9 % Sodium Chloride Mini Bag 100 ML IVPB SCH (10:16)
[2018-06-13 10:51] LABS: Lymphocytes # 3.4 K/mcL (0.6-4.6); Monocytes # 1.2 K/mcL (0.0-1.3); Platelet Estimate Normal (Normal)
[2018-06-13] MEDS: Ketorolac 15 MG/ML VIAL IVP SCH ×2 (11:53→17:57)
[2018-06-13] MEDS ORDERED: Acetaminophen IV 1,000 MG/100 ML INFUS..BTL IVPB SCH (12:00)
[2018-06-14] MEDS: Ketorolac 15 MG/ML VIAL IVP SCH ×2 (00:03→05:05)
[2018-06-14] MEDS: Piperacillin/Tazobactam 3.375 GM in 0.9 % Sodium Chloride Mini Bag 100 ML IVPB SCH ×2 (02:47→10:33)
[2018-06-14] MEDS: Acetylcysteine 10% 2 ML INHSOL IH SCH ×3 (04:14→10:58)
[2018-06-14] MEDS: Ipratropium/Albuterol Neb 3 ML IH SCH ×3 (04:14→10:58)
[2018-06-14] MEDS: *HR* Heparin 5,000 UNIT/ML VIAL SQ SCH (05:05)
[2018-06-14 05:45] LABS: Eosinophils # 0.3 K/mcL (0.0-0.6); Hematocrit 36.1 % (35.3-44.9); Hemoglobin 11.9 g/dL (11.5-15.4); Mean Corpuscular Hemoglobin 31.4 pg (28.0-33.3); Mean Corpuscular Volume 95.3 fL (83.0-100.0); Platelet Count 329 K/mcL (140-400); Red Blood Count 3.79 M/mcL (3.82-4.97)
[2018-06-14 06:11] LABS: Magnesium 1.8 mg/dL (1.6-2.6); Phosphorous 2.7 mg/dL (2.7-4.5)
[2018-06-14 06:12] LABS: BUN/Creatinine Ratio 47 (6-26); Blood Urea Nitrogen 23 mg/dL (6-20); Calcium 8.6 mg/dL (8.6-10.3); Carbon Dioxide 30 mEq/L (23-29); Chloride 101 mEq/L (98-107); Glucose 111 mg/dL (70-105); Osmolality,Calculated 286 (280-300); Potassium 3.7 mEq/L (3.5-5.1); Sodium 136 mEq/L (136-145); eGFR For Non-African Americans > 60 (> 60)
[2018-06-14 06:26] LABS: Lymphocytes # 2.4 K/mcL (0.6-4.6); Monocytes # 1.3 K/mcL (0.0-1.3); Neutrophils # 8.7 K/mcL (1.6-8.9); Platelet Estimate Normal (Normal)
[2018-06-14 06:46] VITALS: BP 122/83
[2018-06-14 06:51] LABS: Alanine Aminotransferase 119 Units/L (7-52); Albumin 2.5 g/dL (3.5-5.7); Albumin/Globulin Ratio 0.7 (1.1-2.2); Alkaline Phosphatase 69 Units/L (34-104); Aspartate Amino Transferase 108 Units/L (13-39); Bilirubin,Direct 0.2 mg/dL (0.0-0.2); Bilirubin,Indirect 0.2 mg/dL (0.0-1.2); Bilirubin,Total 0.4 mg/dL (0.3-1.0); Globulin 3.5 g/dL (2.4-3.5)
[2018-06-14 07:08] LABS: Basophils # 0.1 K/mcL (0.0-0.2); Basophils % 0.7 %; Eosinophils # 0.3 K/mcL (0.0-0.6); Hematocrit 37.9 % (35.3-44.9); Hemoglobin 12.8 g/dL (11.5-15.4); Immature Granulocytes % 5.3 % (0-4); Lymphocytes # 2.4 K/mcL (0.6-4.6); Lymphocytes % 17.1 %; Mean Corpuscular HGB Conc 33.8 g/dL (31.6-35.5); Mean Corpuscular Hemoglobin 32.3 pg (28.0-33.3); Mean Corpuscular Volume 95.7 fL (83.0-100.0); Monocytes # 0.7 K/mcL (0.0-1.3); Monocytes % 4.8 %; Neutrophils # 9.7 K/mcL (1.6-8.9); Nucleated Red Blood Cells 0.3 /100 WBC (0); Platelet Count 326 K/mcL (140-400); Red Blood Count 3.96 M/mcL (3.82-4.97); Red Cell Distribution Width 13.2 % (11.5-14.5); Segmented Neutrophils % 70.1 %
--- NOTE | 2018-06-14 07:29 | Discharge Summary ---
<Evie Pruitt - Last Filed: 06/14/18 08:07> - NOTES TO OUTPATIENT PROVIDER Notes to Outpatient Provider: During admission patient had increaed shrotness of breath requiring ICU. Suspect chronic lung pathology possibly COPD with smoking hsitory - please evaluate and treat as you see fit. Patient was precribed opaite pain medication for post surgery pain - she claims to not have filled tramadol and will not take. She has been instructed to follow up for pain contracts Orders not resulted at time of discharge: Pending orders 06/10/18 10:00 Culture,Blood [BC] Routine 06/14/18 06:52 Complete Blood Count [HEME] Routine 06/15/18 04:00 Basic Metabolic Panel AM 0400 CBC [Complete Blood Count] [HEME] AM 0400 Complete Blood Count [HEME] AM 0400 Magnesium AM 0400 Phosphorous AM 0400 06/16/18 04:00 Basic Metabolic Panel AM 0400 CBC [Complete Blood Count] [HEME] AM 0400 Complete Blood Count [HEME] AM 0400 Magnesium AM 0400 Phosphorous AM 0400 06/17/18 04:00 Basic Metabolic Panel AM 0400 CBC [Complete Blood Count] [HEME] AM 0400 Complete Blood Count [HEME] AM 0400 Magnesium AM 0400 Phosphorous AM 0400 06/18/18 04:00 Basic Metabolic Panel AM 0400 CBC [Complete Blood Count] [HEME] AM 0400 Complete Blood Count [HEME] AM 0400 Magnesium AM 0400 Phosphorous AM 0400 Date of Encounter: 06/14/18 Time of Encounter: 08:16 - Discharge Diagnosis (1) Perforated appendicitis Priority: Primary Status: Resolved (2) Acute respiratory failure with hypoxia Priority: Secondary Status: Resolved (3) Sepsis Priority: Secondary Status: Resolved Qualifiers: Sepsis type: sepsis due to unspecified organism Qualified Code(s): A41.9 - Sepsis, unspecified organism (4) COPD (chronic obstructive pulmonary disease) Priority: Secondary Status: Suspected Qualifiers: COPD type: unspecified COPD Qualified Code(s): J44.9 - Chronic obstructive pulmonary disease, unspecified General Surgery Exam Initial Vital Signs Temp Pulse Resp BP Pulse Ox 98.6 F 119 14 119/84 95 06/06/18 04:23 06/06/18 04:23 06/06/18 04:23 06/06/18 04:23 06/06/18 04:23 - General physical appearance well developed, well nourished, no distress - Eyes normal ocular movement - Respiratory normal expansion, normal respiratory effort, clear to percussion, clear to auscultation - Cardiovascular Cardiovascular exam: Present: RRR, no murmurs/rubs/gallops - Abdomen Abdomen general surgery: Present: bowel sounds present, soft Abdominal Tenderness: Present: RLQ Hernia: Present: none - Incision Incision: Present: draining, serous, approximated. Absent: swollen, inflamed, erythema - Integumentary Integumentary general surgery: Present: warm and dry, no abnormal pigmentation - Neurologic Present: normal coordination, normal sensation - Musculoskeletal Present: normal gait, normal posture - Psychiatric Psychiatric general surgery: Present: A&Ox3, appropriate, oriented to person, oriented to place, oriented to time, speech is normal, memory intact - Hospital Course Hospital course: Ms. Rodriguez is a 58 year old female hx depresssion adbited for adbominal pain found to have perforated appendicitis. Failed medical treatment with antibiotics and was take to OR on 06-09-[address] Small for laproscopic debridement and abdominal wall washout was appendix was highly friable and partial removal completed - abscess formation was noted. POD 1 she had acute respiatory failure with tachypenai and increased oxygen requirements - thus was transferred to the ICU. Diagnosied with COPD excarbation and acute pulmonary edema and treated with lasix and steroids . Remained on TPN for until diet was slowly advanced to regular. She was treated for sepsis with Zosyn for 5 days and discharged with 2 weeks of augmention. - Time Spent with Patient Total time spent providing and/or coordinating discharge services: - Discharge Medications Prescriptions: Albuterol Sulfate [Albuterol Inhaler] 2 puff IH Q4HR #1 hfa.aer.ad OxyCODONE/APAP 10/325 [Percocet 10/325 MG] 1 each PO Q6HR PRN 7 Days #30 tablet PRN Reason: Pain Ibuprofen 800 mg PO Q8HR #42 tablet Ondansetron HCl [Zofran] 4 mg PO Q8HR PRN #14 tab PRN Reason: Nausea And Vomiting Amoxicillin/Clavulanate [Augmentin] 875 mg PO TIDWM 14 Days #42 tablet Docusate [Colace] 100 mg PO BID #30 capsule Home Medications: Cholecalciferol (D-3) [Vitamin D] 1,000 unit PO DAILY 01/30/18 [History] Citalopram Hydrobromide [Celexa] 40 mg PO DAILY 01/30/18 [History] Multivitamin [One Daily Multivitamin] 1 tab PO DAILY 01/30/18 [History] Cyclobenzaprine [Flexeril] 10 mg PO TID 7 Days #21 tablet 01/31/18 [Rx] Tramadol HCl [Ultram] 50 mg PO QID PRN 06/06/18 [History] Albuterol Sulfate [Albuterol Inhaler] 2 puff IH Q4HR #1 hfa.aer.ad 06/14/18 [Rx] Amoxicillin/Clavulanate [Augmentin] 875 mg PO TIDWM 14 Days #42 tablet 06/14/18 [Rx] Docusate [Colace] 100 mg PO BID #30 capsule 06/14/18 [Rx] Ibuprofen 800 mg PO Q8HR #42 tablet 06/14/18 [Rx] Ondansetron HCl [Zofran] 4 mg PO Q8HR PRN #14 tab 06/14/18 [Rx] OxyCODONE/APAP 10/325 [Percocet 10/325 MG] 1 each PO Q6HR PRN 7 Days #30 tablet 06/14/18 [Rx] Allergies/Adverse Reactions: 3 Allergy/AdvReac Type Severity Reaction Status Date / Time No Known Allergies Allergy Verified 01/30/18 07:10 Date of admission: 06/06/18 11:35 Primary care physician: Stella Heaton MD Consults: 06/08/18 11:16 Consult to Respiratory Therapy [CONS] Stat Reason for Consult: Aggressive pulm toileting; preop duoneb and mucomyst. ACCU-PAP, Likely PNA on CXR Time Notified: 11:17 Call Completed: Yes 06/08/18 18:25 Consult to Infectious Diseases [CONS] Routine Consulting Provider: Infectious Disease Sruthi Reason for Consult: GNR in blood Call Completed: Yes 06/09/18 07:44 Consult to Physical Therapy [CONS] Routine Comment: Evaluate, develop and implement POC Reason for Consult: post surgical weakness, hx COPD with decrease exercise tolerance Does patient have active BEDREST order?: No Is patient medically & hemodynamically stable?: Yes Patient assessed for mobility or mobilized this visit?: No 06/09/18 10:15 Consult to Nutrition [CONS] Routine Comment: Consulting Provider: NUTRITION Reason for Dietary Consult: TPN Start and Manage Other:: spoke with Dr Small who approved TPN as continued NPO 06/09/18 13:33 Consult to Parachute Supervisor [CONS] Routine Reason for SW Consult: PT recommending inpatient swing bed 06/09/18 13:40 Consult to Occupational Therapy [CONS] Routine Comment: Evaluate, develop and implement POC Reason for Consult: PT rec inpatient swing bed; insurance requires PT and OT Does patient have active BEDREST order?: No Is patient medically & hemodynamically stable?: Yes 06/11/18 13:28 Consult to Hospitalist [CONS] Routine Consulting Provider: Hospitalkianna Jarquin Reason for Consult: respiratory failure, sepsis, copd Call Completed: Yes 06/13/18 07:52 Consult to Respiratory Therapy [CONS] Routine Reason for Consult: new dx COPD, dounebs and eduation Call Completed: No Discharging clinician: Evie Pruitt Anticipated date of discharge: 06/14/18 Labs on day of discharge: Labs from last 24 hours 06/14/18 06/14/18 06/14/18 04:50 04:50 04:50 WBC 13.2 H RBC 3.79 L Hgb 11.9 Hct 36.1 MCV 95.3 MCH 31.4 MCHC 33.0 RDW 13.0 Plt Count 329 MPV 10.0 Seg Neutrophils % 64.0 Band Neutrophils % 2.0 Lymphocytes % 18.0 Monocytes % 10.0 Eosinophils % 2.0 Metamyelocytes % Myelocytes % 4.0 H Neutrophils # 8.7 Lymphocytes # 2.4 Monocytes # 1.3 Eosinophils # 0.3 Platelet Estimate Normal Sodium 136 Potassium 3.7 Chloride 101 Carbon Dioxide 30 H BUN 23 H Creatinine 0.49 L Est GFR ( Amer) > 60 Est GFR (Non-Af Amer) > 60 BUN/Creatinine Ratio 47 H Glucose 111 H Calculated Osmolality 286 Calcium 8.6 Phosphorus 2.7 Magnesium 1.8 Total Bilirubin 0.4 Direct Bilirubin 0.2 Indirect Bilirubin 0.2 AST 108 H ALT 119 H Alkaline Phosphatase 69 Serum Total Protein 6.0 L Albumin 2.5 L Globulin 3.5 Albumin/Globulin Ratio 0.7 L 06/13/18 06/13/18 06:40 06:40 WBC 11.8 H RBC 3.99 Hgb 12.6 Hct 38.1 MCV 95.5 MCH 31.6 MCHC 33.1 RDW 12.6 Plt Count 367 MPV 9.8 Seg Neutrophils % 58.0 Band Neutrophils % 1.0 Lymphocytes % 29.0 Monocytes % 10.0 Eosinophils % Metamyelocytes % 1.0 H Myelocytes % 1.0 H Neutrophils # 7.0 Lymphocytes # 3.4 Monocytes # 1.2 Eosinophils # Platelet Estimate Normal Sodium 136 Potassium 3.5 Chloride 99 Carbon Dioxide 34 H BUN 22 H Creatinine 0.46 L Est GFR ( Amer) > 60 Est GFR (Non-Af Amer) > 60 BUN/Creatinine Ratio 48 H Glucose 116 H Calculated Osmolality 286 Calcium 8.6 Phosphorus 2.7 Magnesium 1.8 Total Bilirubin Direct Bilirubin Indirect Bilirubin AST ALT Alkaline Phosphatase Serum Total Protein Albumin Globulin Albumin/Globulin Ratio Preliminary micro results at discharge 06/10/18 10:00 Blood Culture - Preliminary Peripheral Venipuncture Culture is incubating and being continuously monitored for growth. Final report to follow. 06/10/18 10:07 Blood Culture - Preliminary Peripheral Venipuncture Culture is incubating and being continuously monitored for growth. Final report to follow. - Impressions ITS Impressions Abdomen/Pelvis CT 06/07/18 19:20 IMPRESSION: 1. Redemonstration of changes in the appendix consistent with acute appendicitis. 2. There continues to be extensive periappendiceal infiltration. There has been interval development of small volume free intraperitoneal fluid and bilateral pleural effusions which would suggest worsening patient status. Please correlate clinically. 3. Interval marked gallbladder distention with some ill-defined layering material which could be sludge. 4. Nonobstructing 2 mm left renal calculus. The findings were sent to the Radiology Results Communication Center at 7:55 pm on 06/07/2018to be communicated to a licensed caregiver. D/ / Tera Hernandez MD / Tera Hernandez MD Interpreting Provider: Tera Hernandez MD Chest X-Ray 06/08/18 07:43 IMPRESSION: See findings above. D/ / Adama Lobo / Adama Lobo Interpreting Provider: Adama Lobo Chest X-Ray 06/09/18 19:21 IMPRESSION: 1. Diffuse bilateral airspace disease, this has progressed from prior exam of 06/08/2018. Findings may indicate worsening pulmonary edema, ARDS or atypical infection. 2. Small bilateral pleural effusions. Left pleural effusion appears slightly decreased in size. 3. Right arm PICC extends to the cavoatrial junction. D/ / 06/09/2018 19:51:16 David Parks MD / estrella Interpreting Provider: David Parks MD Chest X-Ray 06/10/18 08:38 IMPRESSION: Suspected slight increase in diffuse interstitial and airspace opacities bilaterally, potentially pneumonia or edema (cardiogenic or noncardiogenic). D/ / Eddie To MD / Eddie To MD Interpreting Provider: Eddie To MD Echocardiogram 06/10/18 08:42 Impressions: Technically sub-optimal due to poor echocardiographic windows. LVEF 65%. Normal LV chamber size, wall thickness and systolic function. RV not well seen, grossly normal size and function. No significant valvular dysfunction. Unable to estimate pulmonary artery pressure due to lack of TR jet. Left Ventricular Wall Motion: Rest Echo Findings All wall segments showed normal motion. Findings: Study Quality * Technically sub-optimal due to poor echocardiographic windows. ECG Findings * Sinus tachycardia. Left Ventricle * LVEF 65%. * Normal LV chamber size, wall thickness and systolic function. * Indeterminate diastolic function. Right Ventricle * RV not well seen, grossly normal size and function. Left Atrium * Normal left atrial size. Right Atrium * Right atrium is not well visualized. Interatrial Septum * Interatrial septum not well evaluated. Aortic Valve * Aortic valve not well visualized. * No aortic regurgitation. * No aortic stenosis. Mitral Valve * Mitral valve not well visualized. * No mitral regurgitation. Tricuspid Valve * Tricuspid valve not well visualized. * No tricuspid regurgitation. * Unable to estimate RVSP due to lack of TR jet. * Estimated RA pressure is 10 mmHg. Pulmonic Valve * Pulmonic valve not well visualized. * No pulmonic regurgitation. Aorta * Normally sized aortic root. Pericardium * The pericardium appears normal. IVC * Normal IVC dimensions and inspiratory collapse. Chest X-Ray 06/11/18 09:48 IMPRESSION: 1. No significant change. D/ / Saurav Easley MD / Saurav Easley MD Interpreting Provider: Saurav Easley MD Chest X-Ray 06/12/18 04:11 IMPRESSION: Improving aeration of the lungs suggesting slowly resolving pulmonary infiltrates. Unusual configuration to the aortic knob of uncertain etiology and significance. Attention on follow-up chest radiograph is recommended. If findings persist CT scan of the chest would prove helpful for complete assessment. D/ / 06/12/2018 07:51:48 Luke Zimmer MD / pedro Interpreting Provider: Luke Zimmer MD - Patient Status Disposition: Home, Self-Care Condition: Good Functional capacity at discharge: independent ambulation Overall status at discharge: patient is progressing back to baseline - Discharge Instructions Instructions: How to Stop Smoking (GEN), Appendicitis (GEN), Sepsis (DC) Follow Up With: Dale Small MD [Non-Partnered Physician] - 06/28/18 9:00 am Stella Heaton MD [Primary Care Provider] - 06/20/18 9:00 am (Please follow up as sschedule...) Additional Instructions: Please attend follow up appt with Dr Small in two weeks. Continue to advance diet as tolerated. Please call your PCP office to follow up about your new diagnosis if COPD and need for inhalers. Please call your pain medication prescriber to make them aware that we are treating your post surgical pain so they may change their treatment as needed and you do General Surgical Discharge Instructions 1. No pushing, pulling, or lifting greater than 15 lbs for 2-4 weeks (depending upon procedure). 2. You may shower beginning today, but no tub baths, soaking, or swimming for 2 weeks. 3. You may resume driving when you are off narcotics and are safe to react in a car. 4. Take ibuprofen every 8 hours for discomfort. If this does not relieve discomfort, you may take the as needed Percocet. Take narcotics as directed. Do not take more narcotics then directed and do not share your narcotics with any other person. Do not drink alcohol while on narcotics. 5. Take stool softeners (Colace) or a water based laxative (Miralax) while taking narcotics. You may hold for loose stools. 6. Report any fevers greater than 100.5F, increase abdominal discomfort, drainage that looks like pus, increased redness or pain at the surgical site, or any vomiting. 7. Report any pain in the calves, shortness of breath, or rapid heartbeat. 8. Follow-up in the office as directed. 9. If you were prescribed antibiotics, do not stop them without talking to your provider. - Diet and Activity Activity: increase activity as tolerated Diet: advance to your usual diet <Dale Small - Last Filed: 06/14/18 09:45> Orders not resulted at time of discharge: Pending orders 06/10/18 10:00 Culture,Blood [BC] Routine 06/15/18 04:00 Basic Metabolic Panel AM 0400 CBC [Complete Blood Count] [HEME] AM 0400 Complete Blood Count [HEME] AM 0400 Magnesium AM 0400 Phosphorous AM 0400 06/16/18 04:00 Basic Metabolic Panel AM 0400 CBC [Complete Blood Count] [HEME] AM 0400 Complete Blood Count [HEME] AM 0400 Magnesium AM 0400 Phosphorous AM 0400 06/17/18 04:00 Basic Metabolic Panel AM 0400 CBC [Complete Blood Count] [HEME] AM 0400 Complete Blood Count [HEME] AM 0400 Magnesium AM 0400 Phosphorous AM 0400 06/18/18 04:00 Basic Metabolic Panel AM 0400 CBC [Complete Blood Count] [HEME] AM 0400 Complete Blood Count [HEME] AM 0400 Magnesium AM 0400 Phosphorous AM 0400 Date of Encounter: 06/14/18 - Discharge Diagnosis (1) Acute perforated appendicitis Status: Inactive (2) Smoking history Status: Chronic (3) Electrolyte imbalance Status: Acute (4) Tachycardia Status: Acute General Surgery Exam Initial Vital Signs Temp Pulse Resp BP Pulse Ox 98.6 F 119 14 119/84 95 06/06/18 04:23 06/06/18 04:23 06/06/18 04:23 06/06/18 04:23 06/06/18 04:23 - Hospital Course Hospital course: Ms. Rodriguez is a 58 year old female - Time Spent with Patient Total time spent providing and/or coordinating discharge services: Date of admission: 06/06/18 11:35 Primary care physician: Stella Heaton MD Consults: 06/08/18 11:16 Consult to Respiratory Therapy [CONS] Stat Reason for Consult: Aggressive pulm toileting; preop duoneb and mucomyst. ACCU-PAP, Likely PNA on CXR Time Notified: 11:17 Call Completed: Yes 06/08/18 18:25 Consult to Infectious Diseases [CONS] Routine Consulting Provider: Infectious Disease Sruthi Reason for Consult: GNR in blood Call Completed: Yes 06/09/18 07:44 Consult to Physical Therapy [CONS] Routine Comment: Evaluate, develop and implement POC Reason for Consult: post surgical weakness, hx COPD with decrease exercise tolerance Does patient have active BEDREST order?: No Is patient medically & hemodynamically stable?: Yes Patient assessed for mobility or mobilized this visit?: No 06/09/18 10:15 Consult to Nutrition [CONS] Routine Comment: Consulting Provider: NUTRITION Reason for Dietary Consult: TPN Start and Manage Other:: spoke with Dr Small who approved TPN as continued NPO 06/09/18 13:33 Consult to Parachute Supervisor [CONS] Routine Reason for SW Consult: PT recommending inpatient swing bed 06/09/18 13:40 Consult to Occupational Therapy [CONS] Routine Comment: Evaluate, develop and implement POC Reason for Consult: PT rec inpatient swing bed; insurance requires PT and OT Does patient have active BEDREST order?: No Is patient medically & hemodynamically stable?: Yes 06/11/18 13:28 Consult to Hospitalist [CONS] Routine Consulting Provider: Hospitalist Britton Reason for Consult: respiratory failure, sepsis, copd Call Completed: Yes 06/13/18 07:52 Consult to Respiratory Therapy [CONS] Routine Reason for Consult: new dx COPD, dounebs and eduation Call Completed: No Labs on day of discharge: Labs from last 24 hours 06/14/18 06/14/18 06/14/18 06:52 04:50 04:50 WBC 13.8 H RBC 3.96 Hgb 12.8 Hct 37.9 MCV 95.7 MCH 32.3 MCHC 33.8 RDW 13.2 Plt Count 326 MPV 10.0 Immature Gran % 5.3 H Seg Neutrophils % 70.1 Band Neutrophils % Lymphocytes % 17.1 Monocytes % 4.8 Eosinophils % 2.0 Basophils % 0.7 Metamyelocytes % Myelocytes % Neutrophils # 9.7 H Lymphocytes # 2.4 Monocytes # 0.7 Eosinophils # 0.3 Basophils # 0.1 Nucleated RBCs/100 WBC 0.3 H Platelet Estimate Slight increase H Sodium 136 Potassium 3.7 Chloride 101 Carbon Dioxide 30 H BUN 23 H Creatinine 0.49 L Est GFR ( Amer) > 60 Est GFR (Non-Af Amer) > 60 BUN/Creatinine Ratio 47 H Glucose 111 H POC Glucose Calculated Osmolality 286 Calcium 8.6 Phosphorus 2.7 Magnesium 1.8 Total Bilirubin 0.4 Direct Bilirubin 0.2 Indirect Bilirubin 0.2 AST 108 H ALT 119 H Alkaline Phosphatase 69 Serum Total Protein 6.0 L Albumin 2.5 L Globulin 3.5 Albumin/Globulin Ratio 0.7 L 06/14/18 06/14/18 06/13/18 04:50 00:19 20:42 WBC 13.2 H RBC 3.79 L Hgb 11.9 Hct 36.1 MCV 95.3 MCH 31.4 MCHC 33.0 RDW 13.0 Plt Count 329 MPV 10.0 Immature Gran % Seg Neutrophils % 64.0 Band Neutrophils % 2.0 Lymphocytes % 18.0 Monocytes % 10.0 Eosinophils % 2.0 Basophils % Metamyelocytes % Myelocytes % 4.0 H Neutrophils # 8.7 Lymphocytes # 2.4 Monocytes # 1.3 Eosinophils # 0.3 Basophils # Nucleated RBCs/100 WBC Platelet Estimate Normal Sodium Potassium Chloride Carbon Dioxide BUN Creatinine Est GFR ( Amer) Est GFR (Non-Af Amer) BUN/Creatinine Ratio Glucose POC Glucose 123 H 136 H Calculated Osmolality Calcium Phosphorus Magnesium Total Bilirubin Direct Bilirubin Indirect Bilirubin AST ALT Alkaline Phosphatase Serum Total Protein Albumin Globulin Albumin/Globulin Ratio 06/13/18 06/13/1818 16:52 11:49 08:11 WBC RBC Hgb Hct MCV MCH MCHC RDW Plt Count MPV Immature Gran % Seg Neutrophils % Band Neutrophils % Lymphocytes % Monocytes % Eosinophils % Basophils % Metamyelocytes % Myelocytes % Neutrophils # Lymphocytes # Monocytes # Eosinophils # Basophils # Nucleated RBCs/100 WBC Platelet Estimate Sodium Potassium Chloride Carbon Dioxide BUN Creatinine Est GFR ( Amer) Est GFR (Non-Af Amer) BUN/Creatinine Ratio Glucose POC Glucose 131 H 115 H 112 H Calculated Osmolality Calcium Phosphorus Magnesium Total Bilirubin Direct Bilirubin Indirect Bilirubin AST ALT Alkaline Phosphatase Serum Total Protein Albumin Globulin Albumin/Globulin Ratio 06/13/18 06/13/18 06:40 04:49 WBC RBC Hgb Hct MCV MCH MCHC RDW Plt Count MPV Immature Gran % Seg Neutrophils % 58.0 Band Neutrophils % 1.0 Lymphocytes % 29.0 Monocytes % 10.0 Eosinophils % Basophils % Metamyelocytes % 1.0 H Myelocytes % 1.0 H Neutrophils # 7.0 Lymphocytes # 3.4 Monocytes # 1.2 Eosinophils # Basophils # Nucleated RBCs/100 WBC Platelet Estimate Normal Sodium Potassium Chloride Carbon Dioxide BUN Creatinine Est GFR ( Amer) Est GFR (Non-Af Amer) BUN/Creatinine Ratio Glucose POC Glucose 135 H Calculated Osmolality Calcium Phosphorus Magnesium Total Bilirubin Direct Bilirubin Indirect Bilirubin AST ALT Alkaline Phosphatase Serum Total Protein Albumin Globulin Albumin/Globulin Ratio Preliminary micro results at discharge 06/10/18 10:00 Blood Culture - Preliminary Peripheral Venipuncture Culture is incubating and being continuously monitored for growth. Final report to follow. 06/10/18 10:07 Blood Culture - Preliminary Peripheral Venipuncture Culture is incubating and being continuously monitored for growth. Final report to follow. - Impressions ITS Impressions Abdomen/Pelvis CT 06/07/18 19:20 IMPRESSION: 1. Redemonstration of changes in the appendix consistent with acute appendicitis. 2. There continues to be extensive periappendiceal infiltration. There has been interval development of small volume free intraperitoneal fluid and bilateral pleural effusions which would suggest worsening patient status. Please correlate clinically. 3. Interval marked gallbladder distention with some ill-defined layering material which could be sludge. 4. Nonobstructing 2 mm left renal calculus. The findings were sent to the Radiology Results Communication Center at 7:55 pm on 06/07/2018to be communicated to a licensed caregiver. D/ / Tera Hernandez MD / Tera Hernandez MD Interpreting Provider: Tera Hernandez MD Chest X-Ray 06/08/18 07:43 IMPRESSION: See findings above. D/ / Adama Lobo / Adama Lobo Interpreting Provider: Adama Lobo Chest X-Ray 06/09/18 19:21 IMPRESSION: 1. Diffuse bilateral airspace disease, this has progressed from prior exam of 06/08/2018. Findings may indicate worsening pulmonary edema, ARDS or atypical infection. 2. Small bilateral pleural effusions. Left pleural effusion appears slightly decreased in size. 3. Right arm PICC extends to the cavoatrial junction. D/ / 06/09/2018 19:51:16 David Parks MD / estrella Interpreting Provider: David Parks MD Chest X-Ray 06/10/18 08:38 IMPRESSION: Suspected slight increase in diffuse interstitial and airspace opacities bilaterally, potentially pneumonia or edema (cardiogenic or noncardiogenic). D/ / Eddie To MD / Eddie To MD Interpreting Provider: Eddie To MD Echocardiogram 06/10/18 08:42 Impressions: Technically sub-optimal due to poor echocardiographic windows. LVEF 65%. Normal LV chamber size, wall thickness and systolic function. RV not well seen, grossly normal size and function. No significant valvular dysfunction. Unable to estimate pulmonary artery pressure due to lack of TR jet. Left Ventricular Wall Motion: Rest Echo Findings All wall segments showed normal motion. Findings: Study Quality * Technically sub-optimal due to poor echocardiographic windows. ECG Findings * Sinus tachycardia. Left Ventricle * LVEF 65%. * Normal LV chamber size, wall thickness and systolic function. * Indeterminate diastolic function. Right Ventricle * RV not well seen, grossly normal size and function. Left Atrium * Normal left atrial size. Right Atrium * Right atrium is not well visualized. Interatrial Septum * Interatrial septum not well evaluated. Aortic Valve * Aortic valve not well visualized. * No aortic regurgitation. * No aortic stenosis. Mitral Valve * Mitral valve not well visualized. * No mitral regurgitation. Tricuspid Valve * Tricuspid valve not well visualized. * No tricuspid regurgitation. * Unable to estimate RVSP due to lack of TR jet. * Estimated RA pressure is 10 mmHg. Pulmonic Valve * Pulmonic valve not well visualized. * No pulmonic regurgitation. Aorta * Normally sized aortic root. Pericardium * The pericardium appears normal. IVC * Normal IVC dimensions and inspiratory collapse. Chest X-Ray 06/11/18 09:48 IMPRESSION: 1. No significant change. D/ / Saurav Easley MD / Saurav Easley MD Interpreting Provider: Saurav Easley MD Chest X-Ray 06/12/18 04:11 IMPRESSION: Improving aeration of the lungs suggesting slowly resolving pulmonary infiltrates. Unusual configuration to the aortic knob of uncertain etiology and significance. Attention on follow-up chest radiograph is recommended. If findings persist CT scan of the chest would prove helpful for complete assessment. D/ / 06/12/2018 07:51:48 Luke Zimmer MD / pedro Interpreting Provider: Luke Zimmer MD - Attending Attestation patient seen and examined. i have reviewed all labs, imaging, and notes. i agree with the above assessment and plan and wish to add the following... tolerating diet, having bowel function, ambulatory, on room air okay for discharge f/u in two weeks
[2018-06-14] MEDS: Furosemide 20 MG/2 ML VIAL IVP SCH (07:58)
[2018-06-14] MEDS: Micafungin 100 MG in 0.9 % Sodium Chloride Mini Bag 100 ML IVPB SCH (08:01)
[2018-06-14] MEDS: Nicotine 21 MG PATCH.TD24 TD SCH (08:02)
[2018-06-14] MEDS ORDERED: predniSONE 20 MG TABLET PO SCH (09:00)
--- NOTE | 2018-06-14 10:57 | Event Note ---
Date of Encounter: 06/14/18 Time of Encounter: 10:52 Patient seen and evaluated at bedside, reports that she is doing well. Denies abdominal pain, or chest pain. Reports that she has not had a bowel movement but that she is passing gas. Physical Exam: General: Alert and orientedx4. In no acute distress. Cardiovascular:RRR, Normal S1 & S2, no rubs, murmurs or gallops. Lungs: Clear breath sounds auscultation bilaterally, no wheezes or crackles, rales. Abdomen: Soft, non-tender, no rigidity. NABS in all 4 quadrants. B/L Drains in R and L lower quadrants. Extremities: No deformity, no edema or tenderness, no joint swelling or clubbing. Neurological: Normal cognition and motor skills. CN II-XII intact Rest of the physical exam is non contributory Assessment and Plan 1. Perforated apendicitis s/p Laparocopic appendectomy with partial removal of friable tissue due to rupture and abscess formation 2. COPD 3. Sepsis (resolved) 4. Bacteremia due to gram negative bacteria 5. Tobacco abuse 6. VTE prophylaxis Plan patient discharged Follow with surgery in 2 weeks DC on medrol-dose pack for steroid taper Continue PO antibioitcs for at least 5 more days to complete 14 days.
--- NOTE | 2018-06-14 11:03 | Infectious Disease Progress No ---
Date of Encounter: 06/14/18 Time of Encounter: 11:01 - Assessment and Plan (1) Sepsis Status: Resolved The patient had 3 sepsis criteria on admission. Likely secondary to perforated appendix. Improved. Tachycardia has resolved. WBC back up a little today, but clinically patient is doing great. Afebrile overnight. Blood cultures obtained 06/06/18 are positive 1/2 sets for B. fragilis and 1/2 sets for B. uniformis. Repeat blood cultures drawn 06/10/18 are NGTD 2 sets. Qualifiers: Sepsis type: sepsis due to unspecified organism Qualified Code(s): A41.9 - Sepsis, unspecified organism (2) Bacteremia due to Gram-negative bacteria Status: Acute Causative organism: Unclear. Blood cultures obtained 06/06/18 are positive 1/2 sets for B. fragilis and 1/2 sets for B. uniformis. Repeat blood cultures drawn 06/10/18 are NGTD 2 sets. Likely secondary to perforated appendix. Continue Zosyn 3.375 g IV every 8 hours for now. Duration of treatment depends on the clinical picture, but likely a total of 14 days from the first set of negative blood cultures. Can transition to PO Augmentin when ready for discharge to complete the course of treatment. Monitor renal function and dose adjust antibiotics. (3) Perforated appendicitis Status: Resolved Status post laparoscopic debridement and abdominal washout 06/08/[address] Hurtado. No Intra-Op cultures were obtained. Continue Zosyn 3.375 g IV every 8 hours. Continue micafungin 100 mg IV daily. Duration of treatment depends on the clinical picture. Can transition to PO Augmentin and fluconazole to complete a total of 14 days post-op. Monitor renal and liver function and dose adjust antibiotics. (4) Acute respiratory failure with hypoxia Status: Resolved Likely secondary to pulmonary edema. Chest x-ray completed 06/09/18 showed diffuse bilateral airspace disease concerning for R's versus pulmonary edema versus atypical infection. Repeat chest x-ray completed 06/12/18 showed improving aeration of the lung suggesting slowly resolving pulmonary infiltrates. Clinically improved. (5) Hepatitis C Status: Acute Outpatient GI referral. Qualifiers: Viral hepatitis chronicity: chronic Hepatic coma status: without hepatic coma Qualified Code(s): B18.2 - Chronic viral hepatitis C (6) COPD (chronic obstructive pulmonary disease) Status: Suspected Qualifiers: COPD type: unspecified COPD Qualified Code(s): J44.9 - Chronic obstructive pulmonary disease, unspecified - Subjective Interval history: Patient seen and examined. No acute events noted overnight. Reports mild abdominal pain mainly in the RLQ improved since yesterday, but denies fevers, chills, or rigors. Denies chest pain, shortness of breath, or cough. Denies nausea, vomiting, or diarrhea. States she has not had a BM since surgery, but is passing gas. Tolerating full diet. Denies oral thrush or new skin lesions. Infect Dis PN-Objective Data - Labs CBC & Chem 7: 06/14/18 06:52 06/14/18 04:50 Labs: Laboratory Results - last 24 hr 06/13/18 06/13/18 06/13/18 04:49 08:11 11:49 WBC RBC Hgb Hct MCV MCH MCHC RDW Plt Count MPV Immature Gran % Seg Neutrophils % Band Neutrophils % Lymphocytes % Monocytes % Eosinophils % Basophils % Myelocytes % Neutrophils # Lymphocytes # Monocytes # Eosinophils # Basophils # Nucleated RBCs/100 WBC Platelet Estimate Sodium Potassium Chloride Carbon Dioxide BUN Creatinine Est GFR ( Amer) Est GFR (Non-Af Amer) BUN/Creatinine Ratio Glucose POC Glucose 135 H 112 H 115 H Calculated Osmolality Calcium Phosphorus Magnesium Total Bilirubin Direct Bilirubin Indirect Bilirubin AST ALT Alkaline Phosphatase Serum Total Protein Albumin Globulin Albumin/Globulin Ratio 06/13/18 06/13/18 06/14/18 16:52 20:42 00:19 WBC RBC Hgb Hct MCV MCH MCHC RDW Plt Count MPV Immature Gran % Seg Neutrophils % Band Neutrophils % Lymphocytes % Monocytes % Eosinophils % Basophils % Myelocytes % Neutrophils # Lymphocytes # Monocytes # Eosinophils # Basophils # Nucleated RBCs/100 WBC Platelet Estimate Sodium Potassium Chloride Carbon Dioxide BUN Creatinine Est GFR ( Amer) Est GFR (Non-Af Amer) BUN/Creatinine Ratio Glucose POC Glucose 131 H 136 H 123 H Calculated Osmolality Calcium Phosphorus Magnesium Total Bilirubin Direct Bilirubin Indirect Bilirubin AST ALT Alkaline Phosphatase Serum Total Protein Albumin Globulin Albumin/Globulin Ratio 06/14/18 06/14/18 06/14/18 04:50 04:50 04:50 WBC 13.2 H RBC 3.79 L Hgb 11.9 Hct 36.1 MCV 95.3 MCH 31.4 MCHC 33.0 RDW 13.0 Plt Count 329 MPV 10.0 Immature Gran % Seg Neutrophils % 64.0 Band Neutrophils % 2.0 Lymphocytes % 18.0 Monocytes % 10.0 Eosinophils % 2.0 Basophils % Myelocytes % 4.0 H Neutrophils # 8.7 Lymphocytes # 2.4 Monocytes # 1.3 Eosinophils # 0.3 Basophils # Nucleated RBCs/100 WBC Platelet Estimate Normal Sodium 136 Potassium 3.7 Chloride 101 Carbon Dioxide 30 H BUN 23 H Creatinine 0.49 L Est GFR ( Amer) > 60 Est GFR (Non-Af Amer) > 60 BUN/Creatinine Ratio 47 H Glucose 111 H POC Glucose Calculated Osmolality 286 Calcium 8.6 Phosphorus 2.7 Magnesium 1.8 Total Bilirubin 0.4 Direct Bilirubin 0.2 Indirect Bilirubin 0.2 AST 108 H ALT 119 H Alkaline Phosphatase 69 Serum Total Protein 6.0 L Albumin 2.5 L Globulin 3.5 Albumin/Globulin Ratio 0.7 L 06/14/18 06:52 WBC 13.8 H RBC 3.96 Hgb 12.8 Hct 37.9 MCV 95.7 MCH 32.3 MCHC 33.8 RDW 13.2 Plt Count 326 MPV 10.0 Immature Gran % 5.3 H Seg Neutrophils % 70.1 Band Neutrophils % Lymphocytes % 17.1 Monocytes % 4.8 Eosinophils % 2.0 Basophils % 0.7 Myelocytes % Neutrophils # 9.7 H Lymphocytes # 2.4 Monocytes # 0.7 Eosinophils # 0.3 Basophils # 0.1 Nucleated RBCs/100 WBC 0.3 H Platelet Estimate Slight increase H Sodium Potassium Chloride Carbon Dioxide BUN Creatinine Est GFR ( Amer) Est GFR (Non-Af Amer) BUN/Creatinine Ratio Glucose POC Glucose Calculated Osmolality Calcium Phosphorus Magnesium Total Bilirubin Direct Bilirubin Indirect Bilirubin AST ALT Alkaline Phosphatase Serum Total Protein Albumin Globulin Albumin/Globulin Ratio Cultures: Cultures 06/11/18 17:45 Sputum Culture - Final Sputum 06/10/18 10:00 Blood Culture - Preliminary Peripheral Venipuncture Culture is incubating and being continuously monitored for growth. Final report to follow. 06/10/18 10:07 Blood Culture - Preliminary Peripheral Venipuncture Culture is incubating and being continuously monitored for growth. Final report to follow. Exam - Constitutional Vitals: Temp Pulse Resp BP Pulse Ox 98.0 F 75 16 122/83 96 06/14/18 06:44 06/14/18 06:44 06/14/18 06:44 06/14/18 06:44 06/14/18 06:44 General appearance: average body habitus, cooperative, no acute distress - Head Head exam: Present: atraumatic, normal inspection, normocephalic - Eye Eye exam: Present: EOMI, normal appearance, PERRL Pupils: Present: normal accommodation - ENT ENT exam: Present: mucous membranes moist - Neck Neck exam: Present: normal inspection - Respiratory Respiratory exam: Present: CTAB. Absent: rales, respiratory distress, rhonchi, wheezes - Cardiovascular Cardiovascular exam: Present: RRR, +S1, +S2 - GI/Abdominal GI/Abdominal exam: Present: distended, normal bowel sounds, soft, tenderness ( RLQ, mild) Additional comments: SHADI drain noted to the lower abdomen x 2 with serous draining noted. Fallon-umbilical surgical site with anam intact and no erythema, warmth, drainage, or tenderness noted. - Extremities Exam Extremities exam: Present: normal inspection. Absent: joint swelling, pedal edema, tenderness - Neurological Exam Neurological exam: Present: alert, oriented X3, no focal deficits - Psychiatric Psychiatric exam: Present: normal affect, normal mood - Skin Skin exam: Present: dry, intact, normal color, warm Consult Discharge Plan - Plan Instructions: How to Stop Smoking (GEN), Appendicitis (GEN), Sepsis (DC) Additional Instructions: Please attend follow up appt with Dr Small in two weeks. Continue to advance diet as tolerated. Please call your PCP office to follow up about your new diagnosis if COPD and need for inhalers. Please call your pain medication prescriber to make them aware that we are treating your post surgical pain so they may change their treatment as needed and you do General Surgical Discharge Instructions 1. No pushing, pulling, or lifting greater than 15 lbs for 2-4 weeks (depending upon procedure). 2. You may shower beginning today, but no tub baths, soaking, or swimming for 2 weeks. 3. You may resume driving when you are off narcotics and are safe to react in a car. 4. Take ibuprofen every 8 hours for discomfort. If this does not relieve discomfort, you may take the as needed Percocet. Take narcotics as directed. Do not take more narcotics then directed and do not share your narcotics with any other person. Do not drink alcohol while on narcotics. 5. Take stool softeners (Colace) or a water based laxative (Miralax) while taking narcotics. You may hold for loose stools. 6. Report any fevers greater than 100.5F, increase abdominal discomfort, drainage that looks like pus, increased redness or pain at the surgical site, or any vomiting. 7. Report any pain in the calves, shortness of breath, or rapid heartbeat. 8. Follow-up in the office as directed. 9. If you were prescribed antibiotics, do not stop them without talking to your provider. Referrals: Dale Small MD [Non-Partnered Physician] - 06/28/18 9:00 am Stella Heaton MD [Primary Care Provider] - 06/20/18 9:00 am (Please follow up as sschedule...) Prescriptions: Albuterol Sulfate [Albuterol Inhaler] 2 puff IH Q4HR #1 hfa.aer.ad OxyCODONE/APAP 10/325 [Percocet 10/325 MG] 1 each PO Q6HR PRN 7 Days #30 tablet PRN Reason: Pain Ibuprofen 800 mg PO Q8HR #42 tablet Ondansetron HCl [Zofran] 4 mg PO Q8HR PRN #14 tab PRN Reason: Nausea And Vomiting Amoxicillin/Clavulanate [Augmentin] 875 mg PO TIDWM 14 Days #42 tablet Docusate [Colace] 100 mg PO BID #30 capsule methylPREDNISolone [Medrol] 20 mg PO DAILY #1 tab methylPREDNISolone [Medrol] 10 mg PO DAILY #2 tablet
== END 2018-06-14 12:09 | disposition home or self-care (01) | DRG 853 ==
LOC: 3ANU → SUATTDRO 11:35 → ICNU 06-09 18:25 → 2ANU 06-12 14:56
PROVIDERS: ADMIT Surgery; ATTEND Internal Medicine